=== PATIENT | female | born 1985 | race Caucasian/White ===

== ENCOUNTER → 2016-09-30 | Outpatient (CLI) | payer OTHER ==
[2016-09-30 14:39] LABS: CH 33.8; HCT 37.3 % (34.0-46.0); HDW 2.37; HGB 12.5 gm/dL (11.4-16.0); MCH 33.6 pg (25.0-35.0); MCHC 33.6 g/dL (31.0-37.0); Mean Platelet Volume 6.4; RBC 3.73 m/uL (3.80-5.40); RDW 12.9 % (11.5-15.5); WBC 11.2 k/uL (3.8-10.6)
--- NOTE | 2016-09-30 14:40 | US ---
EXAMINATION TYPE: US OB <= 14 wk fetus DATE OF EXAM: 09/30/2016 2:12 PM COMPARISON: Prior pelvic ultrasound May 20, 2013 CLINICAL HISTORY: confirm dates, positive beta-hCG test. EXAM PERFORMED: TA pelvic ultrasound. EXAM MEASUREMENTS: GESTATIONAL AGE / DATING Physician Established: not confirmed Dates by LMP: (10 weeks/6 days) EDC: 04/22/17 Dates by First Scan: no prior Dates by Current Scan : (10 weeks/2 days) EDC: 04/26/2017 MATERNAL ANATOMY Uterus: 10.3 x 7.7 x 6.7 cm Right Ovary: 2.8 x 1.7 x 3.0 cm Left Ovary: 2.2 x 2.7 x 2.0 cm GESTATION / SURVEY CRL: 2.8 cm (9 weeks/4 days) MSD: 4.9 cm (11 weeks/0 days) Yolk Sac (normal less than 6mm): 4mm Heart Rate: 160 bpm Rhythm: normal IUP: viable Date of LMP: 07/16/2016 TECHNOLOGIST IMPRESSION: viable IUP, wnl Single live intrauterine gestation is seen as gestational sac, yolk sac, and pole are identifie d. heart tones are regular and measure 160 bpm. No free fluid is seen in pelvic cul-de-sac. Both ovaries are identified. No suspicious solid or cystic extraovarian adnexal masses seen. IMPRESSION: Single live intrauterine gestation is seen, mean crown-rump length is 2.8 cm corresponding to 9 week 4 day old fetus.
[2016-09-30 15:03] LABS: Glucose 80 mg/dL (74-99); Non-African American GFR(MDRD) >60 (>60 ml/min/1.73 sqM)
[2016-09-30 15:30] LABS: Hepatitis B Surface Ag Index 0.04
[2016-10-02 10:12] LABS: HIV-1/HIV-2 Ab Screen NONREAC (NON REAC)
== END | disposition home or self-care (01) ==
LOC: RADUSWWP 13:43
PROVIDERS: ATTEND Obstetrics & Gynecology
DX: Z36 Encounter for antenatal screening of mother (principal); Z34.81 Encounter for supervision of other normal pregnancy, first trimester; Z3A.09 9 weeks gestation of pregnancy
CPT/HCPCS: 36415; 76801; 82565; 82947; 85027; 86762; 86780; 86850; 86900; 86901; 87340; 87389

== ENCOUNTER 2016-10-29 14:07 | Observation (INO) | payer OTHER ==
[2016-10-29] MEDS ORDERED: SODIUM CHLORIDE 0.9% 1,000 ML IV STA ×2 (15:03)
[2016-10-29 15:24] LABS: ALT 29 U/L (9-52); AST 17 U/L (14-36); Alkaline Phosphatase 46 U/L (38-126); Anion Gap 9 mmol/L; Blood Urea Nitrogen 11 mg/dL (7-17); Calcium 9.7 mg/dL (8.4-10.2); Carbon Dioxide 25 mmol/L (22-30); Chloride 102 mmol/L (98-107); Glucose 84 mg/dL (74-99); Non-African American GFR(MDRD) >60 (>60 ml/min/1.73 sqM); Potassium 3.7 mmol/L (3.5-5.1); Sodium 136 mmol/L (137-145); Total Bilirubin 0.4 mg/dL (0.2-1.3); Total Protein 6.6 g/dL (6.3-8.2)
--- NOTE | 2016-10-29 15:24 | ED ---
General Adult HPI - General Chief complaint: Dizziness Stated complaint: dizzy/abdominal cramps-15 wks preg Time Seen by Provider: 10/29/16 14:56 Source: patient Mode of arrival: wheelchair Limitations: no limitations - History of Present Illness Initial comments: This 31-year-old white female presents with a complaint of some dizziness which she describes more as a presyncopal sensation. This occurred at approximate 7 AM when she was making her children's lunches. She was standing at that time. His been persistent since that time. She is approximately 15 weeks at this time and denies any complications thus far with her . She does relate that she has had a persistent chest heaviness throughout her . She also developed some shortness of breath this past evening. She denies any leg pain or swelling. She denies any history of DVT or PE. She has had some mild inferior abdominal cramping. She denies any vaginal bleeding. His been no nausea or vomiting. She's been eating well and voiding well. She denies any fevers or recent infections. No other complaints or modifying factors. - Related Data Home Medications Medication Instructions Recorded Confirmed #79/Iron Asp Gly/FA#1 1 tab PO DAILY 10/29/16 10/29/16 [Prenate Elite Tablet] Allergies Allergy/AdvReac Type Severity Reaction Status Date / Time No Known Allergies Allergy Verified 10/29/16 14:45 Review of Systems ROS Statement: Those systems with pertinent positive or pertinent negative responses have been documented in the HPI. ROS Other: All systems not noted in ROS Statement are negative. Past Medical History Past Medical History: No Reported History History of Any Multi-Drug Resistant Organisms: None Reported Additional Past Surgical History / Comment(s): Eye surgery Past Psychological History: No Psychological Hx Reported Smoking Status: Never smoker Past Alcohol Use History: None Reported Past Drug Use History: None Reported General Exam - General Exam Comments Initial Comments: GENERAL: The patient is well nourished and well hydrated. VITAL SIGNS: Heart rate, blood pressure, respiratory rate reviewed as recorded in nurse's notes. EYES: Pupils are round and reactive. Extraocular movements are intact. No conjunctival / lid redness or swelling. ENT: No external evidence of injury, swelling, or ecchymosis. Airway is patent. Throat is clear. NECK: Nontender. No swelling or evidence of injury. No subcutaneous emphysema. Trachea is midline. No thyroid mass. HEART: Regular rate and rhythm. Good peripheral pulses. LUNGS/CHEST: Breath sounds clear and equal bilaterally. No rales, rhonchi, or wheezes. No ecchymosis, subcutaneous emphysema, or tenderness. ABDOMEN: Abdomen soft without tenderness. No palpable masses or organomegaly. No peritoneal signs. No abdominal wall swelling or ecchymosis. EXTREMITIES: No extremity tenderness. Normal muscle tone and function. No thoracolumbar tenderness. No extremity swelling. NEUROLOGIC: Sensation is grossly intact. Cranial nerve exam reveals face is symmetrical, tongue is midline, speech is clear. SKIN: No abrasions or ecchymosis is noted. No induration or masses noted. PSYCHIATRIC: Alert and oriented. Appropriate behavior and judgment. Limitations: no limitations Course Vital Signs 10/29/16 10/29/16 10/29/16 14:18 14:55 15:23 Temperature 99.0 F Pulse Rate 90 93 Pulse Rate [ 82 Sitting] Pulse Rate [ 103 H Standing] Pulse Rate [ 88 Supine] Respiratory 18 16 Rate Blood Pressure 127/62 Blood Pressure 122/62 [Right Arm Sitting] Blood Pressure 109/64 [Right Arm Standing] Blood Pressure 118/58 [Right Arm Supine] O2 Sat by Pulse 99 100 Oximetry 10/29/16 16:50 Temperature Pulse Rate 84 Pulse Rate [ Sitting] Pulse Rate [ Standing] Pulse Rate [ Supine] Respiratory 18 Rate Blood Pressure 104/57 Blood Pressure [Right Arm Sitting] Blood Pressure [Right Arm Standing] Blood Pressure [Right Arm Supine] O2 Sat by Pulse 100 Oximetry Medical Decision Making - Medical Decision Making The patient was seen and examined. All diagnostics were reviewed. IV is started and she is hydrated. The patient's EKG shows a normal sinus rhythm at a rate of 88. There is no acute ST-T wave changes identified. The CO interval is 152, QRS duration is 90, and the QTc interval is 450. The patient laboratory came back all essentially within normal limits except for the d- dimer was elevated at 0.79. Urinalysis is pending. She had a ultrasound which shows heart tones at 152 and an intrauterine at 15 weeks with no abnormalities. She is feeling improved on recheck with fluids. Her orthostatic vital signs were negative. The exact cause of her symptoms is not definitively determined. The possibility of a pulmonary embolism certainly is contemplated especially because of her symptomatology of presyncope, chest pain , and shortness of breath with an elevated d-dimer during . The case is discussed with Dr. Jacobo from [facility] for Dr. Adams and he requested the patient be admitted to the hospital overnight for observation and evaluation by Dr. Adams in the morning to determine if further testing is necessary. Case was discussed with Dr. Lopez from internal medicine and patient will be admitted to the hospital for further treatment. She would like OB in pulmonology to consult and for the patient to obtain an echocardiogram. - Lab Data Result diagrams: 10/29/16 15:00 10/29/16 15:00 Lab Results 10/29/16 10/29/16 10/29/16 Range/Units 15:00 15:00 15:00 WBC 8.5 (3.8-10.6) k/uL RBC 3.56 L (3.80-5.40) m/uL Hgb 11.8 (11.4-16.0) gm/dL Hct 34.8 (34.0-46.0) % MCV 97.8 (80.0-100.0) fL MCH 33.3 (25.0-35.0) pg MCHC 34.0 (31.0-37.0) g/dL RDW 13.0 (11.5-15.5) % Plt Count 239 (150-450) k/uL Neutrophils % 78 % Lymphocytes % 13 % Monocytes % 5 % Eosinophils % 2 % Basophils % 0 % Neutrophils # 6.6 (1.3-7.7) k/uL Lymphocytes # 1.1 (1.0-4.8) k/uL Monocytes # 0.4 (0-1.0) k/uL Eosinophils # 0.1 (0-0.7) k/uL Basophils # 0.0 (0-0.2) k/uL PT 10.1 (9.0-12.0) sec INR 1.0 (<1.1) APTT 23.4 (22.0-30.0) sec D-Dimer 0.79 H (<0.60) mg/L FEU Sodium 136 L (137-145) mmol/L Potassium 3.7 (3.5-5.1) mmol/L Chloride 102 (98-107) mmol/L Carbon Dioxide 25 (22-30) mmol/L Anion Gap 9 mmol/L BUN 11 (7-17) mg/dL Creatinine 0.45 L (0.52-1.04) mg/dL Est GFR (MDRD) Af Amer >60 (>60 ml/min/1.73 sqM) Est GFR (MDRD) Non-Af >60 (>60 ml/min/1.73 sqM) Glucose 84 (74-99) mg/dL Calcium 9.7 (8.4-10.2) mg/dL Total Bilirubin 0.4 (0.2-1.3) mg/dL AST 17 (14-36) U/L ALT 29 (9-52) U/L Alkaline Phosphatase 46 (38-126) U/L Troponin I (0.000-0.034) ng/mL Total Protein 6.6 (6.3-8.2) g/dL Albumin 3.8 (3.5-5.0) g/dL HCG, Quant 104096.0 mIU/mL 10/29/16 Range/Units 15:00 WBC (3.8-10.6) k/uL RBC (3.80-5.40) m/uL Hgb (11.4-16.0) gm/dL Hct (34.0-46.0) % MCV (80.0-100.0) fL MCH (25.0-35.0) pg MCHC (31.0-37.0) g/dL RDW (11.5-15.5) % Plt Count (150-450) k/uL Neutrophils % % Lymphocytes % % Monocytes % % Eosinophils % % Basophils % % Neutrophils # (1.3-7.7) k/uL Lymphocytes # (1.0-4.8) k/uL Monocytes # (0-1.0) k/uL Eosinophils # (0-0.7) k/uL Basophils # (0-0.2) k/uL PT (9.0-12.0) sec INR (<1.1) APTT (22.0-30.0) sec D-Dimer (<0.60) mg/L FEU Sodium (137-145) mmol/L Potassium (3.5-5.1) mmol/L Chloride (98-107) mmol/L Carbon Dioxide (22-30) mmol/L Anion Gap mmol/L BUN (7-17) mg/dL Creatinine (0.52-1.04) mg/dL Est GFR (MDRD) Af Amer (>60 ml/min/1.73 sqM) Est GFR (MDRD) Non-Af (>60 ml/min/1.73 sqM) Glucose (74-99) mg/dL Calcium (8.4-10.2) mg/dL Total Bilirubin (0.2-1.3) mg/dL AST (14-36) U/L ALT (9-52) U/L Alkaline Phosphatase (38-126) U/L Troponin I <0.012 (0.000-0.034) ng/mL Total Protein (6.3-8.2) g/dL Albumin (3.5-5.0) g/dL HCG, Quant mIU/mL Disposition Clinical Impression: Near syncope, Chest pain, Dyspnea, , Abdominal cramping, Elevated d- dimer Disposition: ADMITTED IP TO THIS HOSP Condition: Fair Referrals: Celestino Frey MD [Primary Care Provider] - 1-2 days Time of Disposition: 17:58 Decision Date: 10/29/16 Decision Time: 17:58
[2016-10-29 15:30] LABS: Basophils % (A) 0 %; CH 34.4; CHCM 35.4; Eosinophils # (A) 0.1 k/uL (0-0.7); Eosinophils % (A) 2 %; HCT 34.8 % (34.0-46.0); HDW 2.45; HGB 11.8 gm/dL (11.4-16.0); Luc # (Auto) 0.16; Luc % (Auto) 2; Lymphocytes # (A) 1.1 k/uL (1.0-4.8); Lymphocytes % (A) 13 %; MCH 33.3 pg (25.0-35.0); MCV 97.8 fL (80.0-100.0); Mean Platelet Volume 6.4; Monocytes # (A) 0.4 k/uL (0-1.0); Monocytes % (A) 5 %; Neutrophils # (A) 6.6 k/uL (1.3-7.7); Neutrophils % (A) 78 %; RBC 3.56 m/uL (3.80-5.40); WBC 8.5 k/uL (3.8-10.6); WBC (Perox) 8.74
--- NOTE | 2016-10-29 17:11 | US ---
EXAMINATION TYPE: US OB >= 14 wk fetus second trimester DATE OF EXAM: 10/29/2016 4:28 PM COMPARISON: US on PACS September 30, 2016 CLINICAL HISTORY: PainED unable to hear heart tones.Pt c/o dizziness, abd cramping, chest press ure, and SOB TECHNIQUE: TA GESTATIONAL AGE / DATING Physician Established: (15 weeks/0 days) EDC: 04/22/2017 Dates by LMP: (15 weeks/0 days) EDC: 04/22/2017 Dates by First Scan: (14 weeks/ 3 days) EDC: 04/26/2017 Dates by Current Scan: (15 weeks/0 days) EDC: 04/22/2017 SURVEY IUP: Single PLACENTA: Anterior PREVIA: Low Lying LISSETT: wnl CERVICAL LENGTH (transabdominal: norm > 3.0cm): 3.5 cm BIOMETRY PRESENTATION: variable LIE: variable BPD: 2.8 cm 15 weeks / 0 days HC: 9.7 cm 14 weeks / 3 days AC: 8.4 cm 14 weeks / 5 days FL: 1.4 cm 14 weeks / 2 days ESTIMATED WEIGHT IN GRAMS: 99.3 grams ESTIMATED WEIGHT IN LBS/OZS: 0 lbs. 4 oz. HC/AC: 1.14 FL/AC: 51.5 HEART RATE: 152 bpm RHYTHM: Normal TECHNOLOGIST IMPRESSION: Normal viable 15 week IUP. Ovaries wnl, with normal doppler flow. Single live intrauterine gestation is redemonstrated as gestational sac and pole are identified . No free fluid is seen in pelvic cul-de-sac. Both ovaries are identified by technologist. No suspicious adnexal masses are seen. IMPRESSION: Unremarkable study. Regular and normal heart rate is identified.
[2016-10-29 17:26] LABS: Partial Thromboplastin Time 23.4 sec (22.0-30.0); Prothrombin Time 10.1 sec (9.0-12.0)
[2016-10-29] MEDS ORDERED: ACETAMINOPHEN TAB 325 MG TAB PO PRN (18:04)
[2016-10-29] MEDS ORDERED: ENOXAPARIN 40 MG/0.4 ML SYRINGE SQ STA (18:10)
[2016-10-29 18:15] LABS: Amorphous Sediment,Urine Rare /hpf; Appearance,Urine Cloudy (Clear); Bacteria,Urine Few /hpf; Bilirubin,Urine Negative (Negative); Glucose,Urine (UA) Negative (Negative); Ketones,Urine Negative (Negative); Leukocyte Esterase,Urine Trace (Negative); Mucus,Urine Occasional /hpf; Nitrite,Urine Negative (Negative); PH, Urine 6.5 (5.0-8.0); Particle Count 6001; Protein,Urine Negative (Negative); RBC,Urine 1 /hpf (0-5); Specific Gravity,Urine 1.007 (1.001-1.035); Squamous Epithelial Cell,Urine 7 /hpf (0-4); UA Billing (MACRO vs. MICRO) MICRO; Urobilinogen,Urine <2.0 mg/dL (<2.0); WBC,Urine 12 /hpf (0-5)
[2016-10-29 18:58] VITALS: RESP 16
--- NOTE | 2016-10-29 20:34 | P.OBCN ---
History of Present Illness Consult date: 10/29/16 Requesting physician: Joyce Lopez Reason for consult: other (Syncope in .) Chief complaint: Dizziness and shortness of breath History of present illness: This patient is a pleasant 31-year-old 4 para 3 female estimated date of confinement 04/22/2017 estimated gestational age 14-5/7 weeks gestation which is confirmed by a 10 week ultrasound who presented to the emergency department with complaints of shortness of breath and dizziness. Patient's evaluation there was negative with the exception of a mild elevation of a d- dimer and hence she was admitted to the hospital per Dr. Lopez for further evaluation and observation. Patient denies any chest pain. Patient denies any vaginal bleeding or obstetrical symptomatology. Review of Systems Constitutional: Reports as per HPI Genitourinary: Reports Menstruation: Reports amenorrhea Past Medical History Past Medical History: Asthma Additional Past Medical History / Comment(s): skull fx as , asthma as child, uti, had chicken pox when younger,currently states she is 15 weeks . 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 is independant, no outside services. Smoking Status: Former smoker Past Alcohol Use History: None Reported Additional Past Alcohol Use History / Comment(s): started smoking at age 16 has smoked off an onbut has quit during all her pregnancies(most recently quit 3 months ago). Past Drug Use History: None Reported - Past Family History Father Family Medical History: No Reported History Mother Family Medical History: Hyperlipidemia, Hypertension, Thyroid Disorder Additional Family Medical History / Comment(s): mild stroke Medications and Allergies Home Medications Medication Instructions Recorded Confirmed Type #79/Iron Asp Gly/FA#1 1 tab PO DAILY 10/29/16 10/29/16 History [Prenate Elite Tablet] Allergies Allergy/AdvReac Type Severity Reaction Status Date / Time No Known Allergies Allergy Verified 10/29/16 14:45 Exam - Vital Signs Vital signs: Vital Signs Temp Pulse Pulse Pulse Resp BP BP 10/29/16 20:00 88 16 10/29/16 18:56 98.7 F 87 16 114/55 02/08/17 18:30 98.2 F 89 18 117/59 Pulse Ox 10/29/16 20:00 10/29/16 18:56 100 10/29/16 18:30 99 Intake and Output 10/29/16 10/29/16 10/29/16 06:59 14:59 22:59 Other: Voiding Method Toilet Weight 5 kg Patient Weight 10/30/16 06:59 Weight 5 kg Results Result Diagrams: 10/29/16 15:00 10/29/16 15:00 Assessment and Plan (1) Second trimester Narrative/Plan: This is a pleasant 31-year-old 4 para 3 female estimated gestational age 14-5/7 weeks gestation admitted to the emergency department for episodes of dizziness and mild shortness of breath. Evaluation there showed a mild d-dimer elevation. In this is most often a normal laboratory elevation. This patient has no clinical symptomatology consistent with a pulmonary embolism or other respiratory or pulmonary issues. Her dizziness and shortness of breath most likely are physiologic secondary to normal changes. There is no evidence of cardiopulmonary compromise. I do not recommend more invasive or radiologic testing unless the patient's clinical condition were to change. Patient may follow up with me as scheduled in the office and is clear for discharge from an obstetrical standpoint. Thank you very much for this consultation. Status: Acute
[2016-10-29 22:02] LABS: Creatine Kinase 25 U/L (30-135)
[2016-10-29 22:14] LABS: Creatine Kinase MB <0.2 ng/mL (0.0-2.4); Troponin I <0.012 ng/mL (0.000-0.034)
[2016-10-30 01:00] LABS: Glucose,Whole Blood 92 mg/dL (75-99)
[2016-10-30 06:42] LABS: Creatine Kinase 25 U/L (30-135)
[2016-10-30 06:55] LABS: Creatine Kinase MB <0.2 ng/mL (0.0-2.4); Troponin I <0.012 ng/mL (0.000-0.034)
[2016-10-30 08:20] VITALS: BP 104/53; PULSE 83; TEMP 98.8
[2016-10-30] MEDS ORDERED: ENOXAPARIN 40 MG/0.4 ML SYRINGE SQ SCH (09:00)
[2016-10-30] MEDS ORDERED: PRENATAL VIT-IRON-FOLIC ACID 1 EACH CAP PO SCH (09:00)
--- NOTE | 2016-10-30 11:40 | P.CNPUL ---
History of Present Illness Consult date: 10/30/16 Requesting physician: Joyce Lopez Reason for consult: dyspnea Chief complaint: Dizziness shortness of breath and near syncope History of present illness: This is a 31-year-old female, 15 weeks , patient presented to the ER yesterday with mostly symptoms of dizziness, lightheadedness, and presyncopal sensation. Patient was also complaining of chest heaviness which has been going on all along throughout her . Shortness of breath the night before she was admitted, no fever no chills no cough no wheezing no nausea no vomiting no abdominal pain no headache or blurred vision. Apparently the patient was noted to be orthostatic on admission, admitted, hydrated, she feels better today, but she still feels lightheaded and almost about to pass out if she sense up. She denies any shortness of breath at rest, she does have some shortness of breath when she stands up. Reviewing my evaluation, I recommended a chest x-ray patient declined, I also suggested a CT angiogram of the chest, patient declined. My index of suspicion for pulmonary embolism is rather low but definitely should be considered in the differential. Overall the patient feels a bit better today compared to how she felt yesterday upon admission. She felt much better after hydration. And she is still receiving IV fluids. Review of Systems 12 point review of systems were reviewed, please refer to pertinent positives and negatives in HPI Past Medical History Past Medical History: Asthma Additional Past Medical History / Comment(s): skull fx as , asthma as child, uti, had chicken pox when younger,currently states she is 15 weeks . 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 is independant, no outside services. Smoking Status: Former smoker Past Alcohol Use History: None Reported Additional Past Alcohol Use History / Comment(s): started smoking at age 16 has smoked off an onbut has quit during all her pregnancies(most recently quit 3 months ago). Past Drug Use History: None Reported - Past Family History Father Family Medical History: No Reported History Mother Family Medical History: Hyperlipidemia, Hypertension, Thyroid Disorder Additional Family Medical History / Comment(s): mild stroke Medications and Allergies Home Medications Medication Instructions Recorded Confirmed Type #79/Iron Asp Gly/FA#1 1 tab PO DAILY 10/29/16 10/29/16 History [Prenate Elite Tablet] Allergies Allergy/AdvReac Type Severity Reaction Status Date / Time No Known Allergies Allergy Verified 10/29/16 14:45 Physical Exam Vitals: Vital Signs Temp Pulse Pulse Pulse Pulse Pulse Resp 10/30/16 08:33 10/30/16 08:00 98.8 F 83 16 10/30/16 04:00 97.8 F 80 16 10/30/16 00:00 98.1 F 88 100 80 16 10/29/16 23:53 88 16 10/29/16 20:00 88 16 10/29/16 18:56 98.7 F 87 16 10/29/16 18:30 98.2 F 89 18 BP BP BP BP Pulse Ox 10/30/16 08:33 99 10/30/16 08:00 104/53 99 10/30/16 04:00 100/53 99 10/30/16 00:00 112/57 74/35 109/51 100 10/29/16 23:53 10/29/16 20:00 10/29/16 18:56 114/55 100 10/29/16 18:30 117/59 99 Intake and Output 10/29/16 10/30/16 10/30/16 22:59 06:59 14:59 Intake Total 775 Balance 775 Intake: IV 525 Sodium Chloride 0.9% 1, 525 000 ml @ 75 mls/hr IV . [id number] STA Rx#:[id number] Oral 250 Other: Voiding Method Toilet Toilet Toilet # Voids 3 1 Weight 5 kg 56.3 kg Patient Weight 10/31/16 06:59 Weight 56.3 kg Physical Exam: Revealed a 31-year-old female in no distress HEENT:[Neck is supple.] [No neck masses.] [No thyromegaly.] [No JVD.] Chest: [Clear throughout, no crackles, no rhonchi, no wheezes.] Cardiac Exam: [Normal S1 and S2, no S3 gallop, no murmur.] Abdomen: [Soft, nontender, no megaly, no rebound, no guarding, normal bowel sounds.] Extremities: [No clubbing, no edema, no cyanosis.] Neurological Exam: [No focal neurologic deficit.] Results - Laboratory Findings CBC and BMP: 10/29/16 15:00 10/29/16 15:00 PT/INR, D-dimer PT 10.1 sec (9.0-12.0) 10/29/16 15:00 INR 1.0 (<1.1) 10/29/16 15:00 D-Dimer 0.79 mg/L FEU (<0.60) H 10/29/16 15:00 Abnormal lab findings: Abnormal Labs 10/29/16 10/30/16 21:20 05:15 Total Creatine Kinase 25 L 25 L - Diagnostic Findings Additional studies: No radiological studies were done patient declined having a chest x-ray with a shield she also declined having a CT angiogram. Assessment and Plan Plan: Impression: 1 Near syncopal episodes and dyspnea secondary to and dehydration with orthostatic hypotension documented on the chart. 2 history of asthma, but clearly not active at this point and her pulmonary findings are normal. Recommendation: Agree with the present treatment plan, however ideally speaking the patient should have a CT angiogram of the chest to rule out the remote possibility of pulmonary embolism. Discussed that option with the patient, and she clearly declined having any radiological studies. Patient will likely be discharged home today, and follow-up on outpatient basis. Time with Patient: Less than 30
--- NOTE | 2016-10-30 11:57 | P.HPIM ---
History of Present Illness H&P Date: 10/30/16 Chief Complaint: Lightheadedness and shortness of breath HISTORY AND PHYSICAL AND DISCHARGE SUMMARY: This is a 31-year-old female. Her primary care physician is Dr. Celestino Frey. She is currently 15 weeks . She has a past medical history of asthma as a child. She states she has had a little shortness of breath ever since she found out that she was . Dizziness started yesterday morning only when she goes to stand up. She denies any recent nausea , vomiting, diarrhea. She denies any coffee intake. She denies any lower extremity edema. She denies any cough or wheezing. She states the shortness of breath is worse in the middle of the night and is worse when she lays on her back but better if she lays on her side either side. She does not follow with the pulmonary doctor. She came into [facility] emergency center for evaluation. EKG showed no acute ST-T wave changes. D-dimer was mildly elevated at 0.79. Troponin was negative on 3 draws. Urinalysis showed leukoesterase trace, WBC 12 , squamous cell 7, bacteria few. ultrasound was unremarkable. Regular and normal heart rate was identified. Patient was placed on the observation unit. She has been seen in consultation by Dr. Umanzor with recommendations for no further testing and follow-up with him in the office. Patient has been seen in consultation by Dr. Dawn was recommended CAT scan to rule out pulmonary embolism with the patient has refused. Patient is agreeable for discharge home today in stable condition. Pulmonary embolism is thought to be very low probability. Orthostatics have been positive. Review of Systems All systems: negative Constitutional: Denies chills, Denies fever Eyes: denies blurred vision, denies pain Ears, nose, mouth and throat: Denies headache, Denies sore throat Cardiovascular: Reports lightheadedness, Reports shortness of breath, Denies chest pain, Denies syncope Respiratory: Denies cough Gastrointestinal: Denies abdominal pain, Denies diarrhea, Denies nausea, Denies vomiting Genitourinary: Denies dysuria, Denies hematuria Musculoskeletal: Denies myalgias Integumentary: Denies pruritus, Denies rash Neurological: Denies numbness, Denies weakness Psychiatric: Denies anxiety, Denies depression Endocrine: Denies fatigue, Denies weight change Past Medical History Past Medical History: Asthma Additional Past Medical History / Comment(s): skull fx as , asthma as child, uti, chicken pox when younger, currently states she is 15 weeks . 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 is independant, no outside services. Smoking Status: Former smoker Past Alcohol Use History: None Reported Additional Past Alcohol Use History / Comment(s): started smoking at age 16 has smoked off an onbut has quit during all her pregnancies(most recently quit 3 months ago). She denies any medical marijuana, marijuana, street drug use. She denies any alcohol use. Past Drug Use History: None Reported - Past Family History Father Family Medical History: No Reported History Additional Family Medical History / Comment(s): Patient does not know any history of her father. Mother Family Medical History: Hyperlipidemia, Hypertension, Thyroid Disorder Additional Family Medical History / Comment(s): Mother is alive at age 55 with history of asthma, hypothyroidism, TIA, hypertension, hyperlipidemia. Brother(s) Additional Family Medical History / Comment(s): Patient has 2 brothers with no major medical problems. Sister(s) Additional Family Medical History / Comment(s): Patient has 3 half sisters with no major medical problems. Medications and Allergies Home Medications Medication Instructions Recorded Confirmed Type #79/Iron Asp Gly/FA#1 1 tab PO DAILY 10/29/16 10/29/16 History [Prenate Elite Tablet] Allergies Allergy/AdvReac Type Severity Reaction Status Date / Time No Known Allergies Allergy Verified 10/29/16 14:45 Physical Exam Vitals: Vital Signs Temp Pulse Pulse Pulse Pulse Pulse Resp 10/30/16 08:33 10/30/16 08:00 98.8 F 83 16 10/30/16 04:00 97.8 F 80 16 10/30/16 00:00 98.1 F 88 100 80 16 10/29/16 23:53 88 16 10/29/16 20:00 88 10/29/16 18:56 98.7 F 87 16 10/29/16 18:30 98.2 F 89 18 BP BP BP BP Pulse Ox 10/30/16 08:33 99 10/30/16 08:00 104/53 99 10/30/16 04:00 100/53 99 10/30/16 00:00 112/57 74/35 109/51 100 10/29/16 23:53 10/29/16 20:00 10/29/16 18:56 114/55 100 10/29/16 18:30 117/59 99 Intake and Output 10/29/16 10/30/16 10/30/16 22:59 06:59 14:59 Intake Total 775 Balance 775 Intake: IV 525 Sodium Chloride 0.9% 1, 525 000 ml @ 75 mls/hr IV . [id number] STA Rx#:[id number] Oral 250 Other: Voiding Method Toilet Toilet # Voids 3 Weight 5 kg 56.3 kg Patient Weight 10/31/16 06:59 Weight 56.3 kg Gen: This is a 31-year-old female. She is sitting up in bed and appears to be in no acute respiratory distress. HEENT: Head is atraumatic, normocephalic. Pupils equal, round. Sclerae is anicteric. NECK: Supple. No JVD. No lymphadenopathy. No thyromegaly. LUNGS: Clear to auscultation. No wheezes or rhonchi. No intercostal retractions. HEART: Regular rate and rhythm. No murmur. ABDOMEN: Soft. Bowel sounds are present. No masses. No tenderness. EXTREMITIES: No pedal edema. No calf tenderness. NEUROLOGICAL: Patient is awake, alert and oriented x3. Cranial nerves 2 through 12 are grossly intact. Results CBC & Chem 7: 10/29/16 15:00 10/29/16 15:00 Labs: Abnormal Lab Results - Last 24 Hours (Table) 10/29/16 10/30/16 Range/Units 21:20 05:15 Total Creatine Kinase 25 L 25 L (30-135) U/L Thrombosis Risk Factor Assmnt - DVT/VTE Prophylaxis DVT/VTE Prophylaxis: Low risk, early ambulation encouraged - Choose All That Apply Any of the Below Risk Factors Present?: Yes Each Factor Represents 1 point: or Other Risk Factors: No Other congenital or acquired thrombophilia - If yes, enter type in comment: No Thrombosis Risk Factor Assessment Total Risk Factor Score: 1 Thrombosis Risk Factor Assessment Level: Low Risk Assessment and Plan Plan: 1. Lightheadedness secondary to vasovagal and . Patient encouraged increased fluids, moves slowly. 2. Shortness of breath since onset of most likely due to the itself. D-dimer was mildly elevated and patient has declined CAT scan to rule out pulmonary embolism. Patient is at low probability for pulmonary embolism. 3. . Patient has been evaluated by Dr. Umanzor with planned follow- up in the office. 4. History of asthma as a child, currently not active. Patient is observation status. Discharge plan: Return home Impression and plan of care have been directed as dictated by the signing physician. Apoorva Ortiz nurse practitioner acting as scribe for signing physician. Cc: Dr. Celestino Frey Time with Patient: Greater than 30
== END 2016-10-30 11:05 | disposition home or self-care (01) ==
LOC: EC 14:07 → 3OBS 18:08
PROVIDERS: ADMIT Family Medicine; ATTEND Family Medicine
DX: O26.892 Other specified pregnancy related conditions, second trimester (principal); O99.512 Diseases of the respiratory system complicating pregnancy, second trimester; I95.1 Orthostatic hypotension; R06.00 Dyspnea, unspecified; R06.02 Shortness of breath; O99.282 Endocrine, nutritional and metabolic diseases complicating pregnancy, second trimester; E86.0 Dehydration; R07.89 Other chest pain; R10.9 Unspecified abdominal pain; Z87.891 Personal history of nicotine dependence; Z3A.15 15 weeks gestation of pregnancy; Z79.899 Other long term (current) drug therapy
CPT/HCPCS: 99284; 96372; 96360; 96361 ×2; 36415; 94760; 85379; 80053; 82550 ×2; 82553 ×2; 84484 ×2; 85025; 85610; 85730; 81001; 84702; 76805; G0378 ×2; J1650; 93005

== ENCOUNTER → 2016-11-25 | Outpatient (CLI) | payer OTHER ==
--- NOTE | 2016-11-26 10:10 | US ---
EXAMINATION TYPE: US OB anatomy transabd DATE OF EXAM: 11/25/2016 4:54 PM COMPARISON: None CLINICAL HISTORY: O36.62X0 Large for Dates 2nd Trimester TECHNIQUE: OBTA GESTATIONAL AGE / DATING Physician Established: (18 weeks/6 days) EDC: 04/22/2017 Dates by LMP: (18 weeks/6 days) EDC: 04/22/2017 Dates by First Scan: (18 weeks/2 days) EDC: 04/26/2017 Dates by Current Scan: (18 weeks/4 days) EDC: 04/24/2017 SURVEY IUP: Single PLACENTA: Anterior PREVIA: Complete LISSETT: 19.4 cm Normal CERVICAL LENGTH (transabdominal: norm > 3.0cm): 4.3 Normal Values (used in Ultrasound ) BIOMETRY PRESENTATION: Variable BPD: 4.3 cm 18 weeks / 6 days HC: 15.4 cm 18 weeks / 3 days AC: 13.9 cm 19 weeks / 2 days FL: 2.7 cm 18 weeks / 2 days ESTIMATED WEIGHT IN GRAMS: 257 grams ESTIMATED WEIGHT IN LBS/OZS: 0 lbs. 9 oz. WEIGHT PERCENTAGE BASED ON ESTABLISHED DATES: 41% HC/AC: 1.1 Normal FL/AC: 19.5 Normal HEART RATE: 148 bpm RHYTHM: Normal ANATOMY SEEN (within normal limits): * Lateral Vent (< 1 cm) 0.6 cm * Cisterna Magna (< 1.1 cm) 0.4 cm * Nuchal Fold (< 0.6 cm) 0.1 cm * Cerebellum (varies with age) 1.8 cm Choroid Plexus (bilateral) Midline Falx Cavus Septi Pellucidi Four Chamber Heart Outflow tracts: LVOT/RVOT Stomach Situs Diaphragm Kidneys (bilateral) Bladder Cord Insert Three Vessel Cord Longitudinal Spine Transverse Spine Arms (bilateral) Legs (bilateral) ANATOMY NOT SEEN: position Nose / Lips TECHNOLOGIST IMPRESSION: Viable 18w4d fetus seen with possible placenta previa, wnl for growth IMPRESSION: 1. Single intrauterine gestation estimated at 18 weeks 4 days gestation. This would have a calculated EDC of 04/24/2017. Correlate this with her physician established EDC. 2. Cardiac activity measures 148 bpm. 3. Possible low lying placenta versus placenta previa. 4. Limited evaluation of the nose and lips due to positioning at the time of this examination.
== END | disposition home or self-care (01) ==
LOC: RADUSWWP 16:02
PROVIDERS: ATTEND Obstetrics & Gynecology
DX: O36.62X0 Maternal care for excessive fetal growth, second trimester, not applicable or unspecified (principal); Z3A.18 18 weeks gestation of pregnancy
CPT/HCPCS: 76811

== ENCOUNTER → 2017-01-16 | Outpatient (CLI) | payer OTHER ==
[2017-01-16 09:51] LABS: CH 35.3; CHCM 32.9; HCT 34.7 % (34.0-46.0); HDW 2.46; HGB 11.2 gm/dL (11.4-16.0); MCH 34.9 pg (25.0-35.0); MCHC 32.3 g/dL (31.0-37.0); MCV 107.9 fL (80.0-100.0); Macrocytosis Marked; Mean Platelet Volume 6.5; RBC 3.22 m/uL (3.80-5.40); RDW 14.4 % (11.5-15.5); WBC 8.5 k/uL (3.8-10.6)
== END | disposition home or self-care (01) ==
LOC: LABWHC1 08:30
PROVIDERS: ATTEND Obstetrics & Gynecology
DX: Z34.82 Encounter for supervision of other normal pregnancy, second trimester (principal); Z3A.00 Weeks of gestation of pregnancy not specified
CPT/HCPCS: 36415; 82950; 85027

== ENCOUNTER → 2017-01-21 | Outpatient (CLI) | payer OTHER ==
[2017-01-21 13:24] LABS: Glucose 3 Hour, Gest 101 mg/dL
== END | disposition home or self-care (01) ==
LOC: LABWHC1 08:31
PROVIDERS: ATTEND Obstetrics & Gynecology
DX: O99.810 Abnormal glucose complicating pregnancy (principal); Z3A.00 Weeks of gestation of pregnancy not specified
CPT/HCPCS: 36415; 82951; 82952

== ENCOUNTER 2017-04-15 05:52 | Inpatient (IN) | payer OTHER ==
[2017-04-15] MEDS ORDERED: OXYTOCIN 10 UNIT/ML 1 ML VIAL IM PRN (06:01)
[2017-04-15] MEDS ORDERED: LIDOCAINE 1% (PF) 10 MG/ML (30 ML SDV) SQ PRN (06:01)
[2017-04-15] MEDS ORDERED: LACTATED RINGERS 1,000 ML IV SCH (06:01)
[2017-04-15] MEDS ORDERED: OXYTOCIN 20 UNITS/1000 ML NS 1,000 ML IV SCH ×2 (06:01→13:30)
[2017-04-15] MEDS ORDERED: METHYLERGONOVINE 0.2 MG/ML 1 ML AMP IM PRN (06:01)
[2017-04-15] MEDS ORDERED: TERBUTALINE 1 MG/ML VIAL SQ PRN (06:01)
[2017-04-15] MEDS ORDERED: CARBOPROST TROMETHAMINE 250 MCG/ML 1 ML AMP IM PRN (06:01)
[2017-04-15 06:15] VITALS: BMI 34.9
[2017-04-15 06:22] LABS: Basophils % (A) 0 %; CH 36.7; CHCM 34.9; Eosinophils # (A) 0.1 k/uL (0-0.7); Eosinophils % (A) 2 %; HCT 34.6 % (34.0-46.0); HDW 3.06; HGB 12.1 gm/dL (11.4-16.0); Luc # (Auto) 0.17; Luc % (Auto) 2; Lymphocytes # (A) 1.1 k/uL (1.0-4.8); Lymphocytes % (A) 14 %; MCH 36.9 pg (25.0-35.0); MCHC 34.9 g/dL (31.0-37.0); MCV 105.9 fL (80.0-100.0); Macrocytosis Moderate; Mean Platelet Volume 7.4; Monocytes # (A) 0.5 k/uL (0-1.0); Monocytes % (A) 5 %; Neutrophils # (A) 6.4 k/uL (1.3-7.7); Neutrophils % (A) 77 %; RBC 3.27 m/uL (3.80-5.40); RDW 14.3 % (11.5-15.5); WBC 8.3 k/uL (3.8-10.6); WBC (Perox) 8.52
--- NOTE | 2017-04-15 06:48 | P.HPOB ---
History of Present Illness H&P Date: 04/15/17 Chief Complaint: Patient is presenting for requested induction of labor. This patient is a pleasant 31-year-old 4 para 3 female estimated date of confinement 04/22/2017 estimated gestational age 39 weeks who presents to labor and delivery requesting induction of labor. Patient's care has been uncomplicated with the exception of history of delivery at 35 weeks she's been on pelvic rest. Patient is uncomfortable and has requested induction of labor at this time. Review of Systems Constitutional: Denies chills, Denies fever Ears, nose, mouth and throat: Denies headache, Denies sore throat Cardiovascular: Denies chest pain, Denies shortness of breath Respiratory: Denies cough Gastrointestinal: Reports heartburn Genitourinary: Reports Menstruation: Reports amenorrhea Musculoskeletal: Denies myalgias Integumentary: Denies pruritus, Denies rash Neurological: Denies numbness, Denies weakness Psychiatric: Denies anxiety, Denies depression Endocrine: Denies fatigue, Denies weight change Past Medical History Past Medical History: Asthma Additional Past Medical History / Comment(s): skull fx as , asthma as child, uti, chicken pox when younger, currently states she is 15 weeks . 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 is independant, no outside services. Smoking Status: Former smoker Past Alcohol Use History: None Reported Additional Past Alcohol Use History / Comment(s): started smoking at age 16 has smoked off an onbut has quit during all her pregnancies(most recently quit 3 months ago). She denies any medical marijuana, marijuana, street drug use. She denies any alcohol use. Past Drug Use History: None Reported - Past Family History Father Family Medical History: No Reported History Additional Family Medical History / Comment(s): Patient does not know any history of her father. Mother Family Medical History: Hyperlipidemia, Hypertension, Thyroid Disorder Additional Family Medical History / Comment(s): Mother is alive at age 55 with history of asthma, hypothyroidism, TIA, hypertension, hyperlipidemia. Brother(s) Additional Family Medical History / Comment(s): Patient has 2 brothers with no major medical problems. Sister(s) Additional Family Medical History / Comment(s): Patient has 3 half sisters with no major medical problems. Medications and Allergies Home Medications Medication Instructions Recorded Confirmed Type 114/Iron A-G/Folate 1 1 tab PO DAILY 10/29/16 04/15/17 History [Prenate Elite Tablet] Allergies Allergy/AdvReac Type Severity Reaction Status Date / Time No Known Allergies Allergy Verified 04/15/17 06:00 Exam - Vital Signs Vital signs: Vital Signs Temp Pulse Resp BP 04/15/17 06:00 98.3 F 98 16 135/65 Intake and Output 04/14/17 04/14/17 04/15/17 14:59 22:59 06:59 Other: # Voids 1 Weight 83.915 kg Patient Weight 04/15/17 06:59 Weight 83.915 kg - OBG Physical Exam Abdomen: bowel sounds normal, no diffuse tenderness, no bruit present, no guarding noted, no hepatomegaly, no splenomegaly, no mass Vulva: both: normal Vagina: normal moisture, no discharge Cervix: no lesion (Cervix is 2 cm dilated 50% effaced -2), no discharge Uterus: enlarged (Fundal height is 38 cm in the office.) Results blood work shows she is A positive, rubella immune, RPR nonreactive, HIV is nonreactive, hepatitis B was negative, ultrasounds have been normal, Glucola was abnormal with a normal three-hour GTT, group B strep was negative. Result Diagrams: 04/15/17 06:05 Abnormal Lab Results - Last 24 Hours (Table) 04/15/17 Range/Units 06:05 RBC 3.27 L (3.80-5.40) m/uL MCV 105.9 H (80.0-100.0) fL MCH 36.9 H (25.0-35.0) pg Assessment and Plan (1) Third trimester Narrative/Plan: This is a pleasant 31-year-old 4 para 3 female 39 weeks gestation who presents to labor and delivery for requested induction of labor. Plan is induction of labor and anticipate vaginal delivery. Status: Acute (2) Elective induction of labor planned Status: Acute
[2017-04-15] MEDS ORDERED: CITRIC ACID-SODIUM CITRATE 15 ML CUP PO ONE (12:26)
[2017-04-15] MEDS ORDERED: LACTATED RINGERS 1,000 ML IV ONE (12:26)
[2017-04-15] MEDS ORDERED: ceFAZolin 2 GM in SODIUM CHLORIDE 0.9% 100 ML IVPB ONE (12:26)
[2017-04-15] MEDS: LACTATED RINGERS 1,000 ML IV SCH ×2 (12:35→20:01)
[2017-04-15] MEDS ORDERED: SODIUM CHLORIDE 0.9% 100 ML BAG ONE (12:41)
[2017-04-15] MEDS ORDERED: NALBUPHINE 10 MG/ML AMPUL ONE (12:41)
[2017-04-15] MEDS ORDERED: KETOROLAC 30 MG/ML 1 ML VIAL ONE (12:41)
[2017-04-15] MEDS ORDERED: BUPIVACAINE (PF) 0.25% 30 ML VIAL ONE (12:41)
[2017-04-15] MEDS ORDERED: ONDANSETRON 4 MG/2 ML VIAL ONE (12:41)
[2017-04-15] MEDS ORDERED: OXYTOCIN 10 UNIT/ML 1 ML VIAL ONE (12:41)
[2017-04-15] MEDS ORDERED: fentaNYL (PF) 50 MCG/ML 5 ML AMP ONE (12:41)
[2017-04-15] MEDS ORDERED: NALOXONE 0.4 MG/ML 1 ML VIAL IV PRN ×3 (13:27→17:51)
[2017-04-15] MEDS ORDERED: ONDANSETRON 4 MG/2 ML VIAL IVP PRN ×2 (13:27→15:18)
[2017-04-15] MEDS ORDERED: ZOLPIDEM 5 MG TAB PO PRN (13:27)
[2017-04-15] MEDS ORDERED: diphenhydrAMINE 50 MG/ML 1 ML VIAL IVP PRN (13:27)
[2017-04-15] MEDS ORDERED: METOCLOPRAMIDE 5 MG/ML 2 ML VIAL IVP PRN (13:27)
[2017-04-15] MEDS ORDERED: ACETAMINOPHEN TAB 325 MG TAB PO PRN (13:27)
[2017-04-15] MEDS ORDERED: diphenhydrAMINE 25 MG CAP PO PRN (13:27)
[2017-04-15] MEDS ORDERED: KETOROLAC 30 MG/ML 1 ML VIAL IVP PRN (15:18)
[2017-04-15] MEDS ORDERED: MORPHINE SULFATE 4 MG/ML SYRINGE IVP PRN (15:18)
--- NOTE | 2017-04-15 18:08 | P.OP ---
Date of Procedure: 04/15/17 Preoperative Diagnosis: #1: 39-0/7 week . #2: malpresentation. Postoperative Diagnosis: Same Procedure(s) Performed: Primary low transverse section Implants: Anesthesia: spinal Surgeon: Willie Adams [employer] Cutter #1: Rafat Chin Estimated Blood Loss (ml): 1,000 Pathology: other (Placenta) Condition: stable Disposition: floor Indications for Procedure: Please see dictated H&P for intimate details of this patient's admission. In brief summary this is a pleasant 31-year-old 4 para 3 female 39-0/7 weeks gestation who was admitted this morning for requested induction of labor. On admission patient was 2 cm dilated and artificial rupture membranes for clear fluid. Patient's labor was induced with Pitocin per protocol. Later in the morning patient on exam was noted to have the head not presenting on the cervix. Ultrasound shows the to be oblique and very asynclitic. Repeat pelvic exam shows the head not being engaged or against cervix. At this time I recommend proceeding with section for delivery. Patient does understand this surgery and risks including risks of infection, bleeding, possible injury to bowel, bladder, vessels, and other organs. She also understands the risk of DVT pulmonary embolism. All the patient's questions are answered written consent is obtained. Operative Findings: This patient has a Causey catheter placed to straight drain. She is subsequently taken to the operating room where she sat up and spinal anesthetic is administered without incident. With adequate level of anesthesia she has abdominal prep and drape. Scalpels then taken and a Pfannenstiel skin incision is then made. A second scalpel is taken down to the fascia. Fascial incision extended bilaterally using the Daniels scissors. Fascia is then dissected sharply off the rectus muscles. The rectus muscles are and the peritoneum identified and entered sharply. Peritoneal incision extended superior and inferior without difficulty. Bladder blade is placed at this time. Note the uterus is very rotated to the left and therefore we will re-position the uterus to better visualize the lower uterine segment. There is a lot of vascularity in this area and for this reason I go above the bladder reflection was scalpel. A low transverse uterine incision is then made. The placenta is noted to be anterior and using a hemostat I gently go through the placenta extend this incision bluntly deliver the incision through this incision. The head is scattered through the incision with fundal pressure delivered 's head and rest of the infant's body. There is a nuchal cord which is loose and reduced. Mouth and nares are bulb suctioned. The umbilical cord is doubly clamped and cut appears to be trivascular. The placenta is manually extracted intact. Uterus at this time is externalized. The uterine incision is then demarcated with Kapoor clamps. Using a 0 Vicryl suture I reapproximate the uterine incision in a running locked fashion. 2 layers is used. There is another area on the right side which is bleeding and using multiple interrupted sutures of 0 Vicryl hemostasis is assured. Inspection of the rest of the uterus tubes and ovaries appears normal. Excess fluid is removed from the abdomen and pelvis. The incision is inspected once again appears to be hemostatic. The parietal peritoneum was then identified and closed using 0 Vicryl running fashion. The rectus muscle reapproximation using 0 Vicryl interrupted fashion. The fascia is then closed using 0 PDS. Fascial incision is intact and hemostatic. Subcutaneous tissues and closed using a 3-0 Vicryl. Skin is and closed using mare. Sterile dressing is then applied. All counts are correct 3. There are no complications. Patient is taken to her birthing suite in satisfactory condition. Description of Procedure:
[2017-04-15] MEDS: HYDROmorphone PCA 5 MG/25 ML SYRINGE IV PRN ×3 (18:20→18:26)
[2017-04-15] MEDS: SENNOSIDES-DOCUSATE SODIUM 1 EACH TAB PO SCH (20:01)
[2017-04-15] MEDS: ceFAZolin 2 GM in SODIUM CHLORIDE 0.9% 100 ML IVPB SCH (20:49)
[2017-04-16] MEDS ORDERED: HYDROcodone/APAP 5-325MG 1 EACH TAB PO PRN (06:30)
--- NOTE | 2017-04-16 06:39 | P.PNOBGPC ---
Subjective - Subjective Patient reports: Reports appetite normal, Reports voiding normally, Reports pain well controlled, Reports ambulating normally : doing well Objective - Vital Signs Latest vital signs: Vital Signs Temp Pulse Resp BP Pulse Ox 04/16/17 04:00 98.5 F 95 16 103/71 97 04/16/17 00:00 98.6 F 98 14 112/73 97 04/15/17 20:00 98.8 F 91 16 147/63 98 04/15/17 17:37 91 18 116/57 97 04/15/17 16:18 98 04/15/17 15:30 86 18 123/76 98 04/15/17 15:18 98 04/15/17 15:00 96 18 111/74 98 04/15/17 14:30 89 18 113/58 98 04/15/17 14:15 87 18 122/58 97 04/15/17 14:00 89 18 111/61 97 04/15/17 13:45 83 18 112/55 96 04/15/17 13:30 97.7 F 83 18 123/57 96 Intake and Output 04/15/17 04/15/17 04/16/17 14:59 22:59 06:59 Intake Total 2000 Output Total 2400 800 Balance -400 -800 Intake: IV 2000 Lactated Ringers 1,000 ml 2000 @ 125 mls/hr IV .Q8H [facility] Rx#:[id number] Output: Urine 400 500 Stool 300 Estimated Blood Loss 2000 Other: Voiding Method Indwelling Catheter Indwelling Catheter - Exam Lungs: bilateral: normal Chest: Normal S1, Normal S2 Extremities: Present: normal Abdomen: Present: normal appearance, soft. Absent: distention, tenderness Incision: Present: normal, dry, intact Uterus: Present: normal, firm Assessment and Plan (1) Third trimester Narrative/Plan: Post operative day #1. Patient is resting without new complaints. Vital signs are stable and she is afebrile. Uterus is firm nontender she's having normal lochia. Her incision is intact and dry. She does have some decreased bowel sounds but patient is tolerating liquid diet and I'm going to advance her to a regular diet as tolerated. CBC is pending at this time. Plan today is to discontinue her catheter, encourage her to ambulate, advance to regular diet, and check a CBC. Dr. Walters we will see this patient Thursday and Thursday in my absence. Current Visit: Yes Status: Acute Code(s): Z34.93 - ENCNTR FOR SUPRVSN OF NORMAL PREG, UNSP, THIRD TRIMESTER SNOMED Code(s): 74940449 (2) Elective induction of labor planned Current Visit: Yes Status: Acute Code(s): QSS7092 - SNOMED Code(s): 926338634
[2017-04-16] MEDS: KETOROLAC 30 MG/ML 1 ML VIAL IVP PRN ×3 (06:49→18:15)
[2017-04-16] MEDS: ceFAZolin 2 GM in SODIUM CHLORIDE 0.9% 100 ML IVPB SCH (07:06)
[2017-04-16 07:45] LABS: Basophils % (A) 0 %; CH 36.3; CHCM 34.5; Eosinophils # (A) 0.1 k/uL (0-0.7); Eosinophils % (A) 1 %; HCT 28.3 % (34.0-46.0); HDW 3.02; Luc # (Auto) 0.19; Luc % (Auto) 2; Lymphocytes # (A) 0.9 k/uL (1.0-4.8); Lymphocytes % (A) 8 %; MCH 36.1 pg (25.0-35.0); MCHC 34.1 g/dL (31.0-37.0); MCV 105.9 fL (80.0-100.0); Macrocytosis Moderate; Mean Platelet Volume 7.7; Monocytes # (A) 0.5 k/uL (0-1.0); Monocytes % (A) 5 %; Neutrophils # (A) 9.6 k/uL (1.3-7.7); Neutrophils % (A) 84 %; RBC 2.67 m/uL (3.80-5.40); RDW 14.2 % (11.5-15.5); WBC 11.3 k/uL (3.8-10.6); WBC (Perox) 11.28
[2017-04-16 07:49] LABS: HGB 9.6 gm/dL (11.4-16.0)
[2017-04-16] MEDS: SENNOSIDES-DOCUSATE SODIUM 1 EACH TAB PO SCH ×2 (08:11→19:44)
[2017-04-16] MEDS: HYDROcodone/APAP 5-325MG 1 EACH TAB PO PRN ×3 (08:30→21:40)
--- NOTE | 2017-04-16 09:16 | P.PN ---
Progress Note - Text Postoperative day 1 status post section under spinal anesthesia, and intrathecal morphine given for postoperative analgesia, patient doing well, there is no anesthesia related complications, further management as per her primary team
[2017-04-16] MEDS: SIMETHICONE 80 MG CHEWABLE PO PRN ×2 (15:25→19:44)
[2017-04-16] MEDS: LACTATED RINGERS 1,000 ML IV SCH (19:44)
[2017-04-17] MEDS: IBUPROFEN 600 MG TAB PO PRN ×2 (02:04→11:52)
[2017-04-17] MEDS: HYDROcodone/APAP 5-325MG 1 EACH TAB PO PRN ×2 (06:58→15:08)
--- NOTE | 2017-04-17 07:42 | P.PNOBGPC ---
Subjective - Subjective Principal diagnosis: S/P 1*LTCS POD #2 Interval history: Patient seen and examined. Denies N/V, F/C, CP, SOB, calf pain. Patient reports: Reports appetite normal, Reports voiding normally, Reports pain well controlled, Reports ambulating normally : doing well Objective - Vital Signs Latest vital signs: Vital Signs Temp Pulse Resp BP Pulse Ox 04/16/17 23:46 98.7 F 106 H 18 108/63 97 04/16/17 15:30 98.5 F 95 18 112/58 99 04/16/17 11:04 98.2 F 107 H 16 102/59 98 04/16/17 07:52 98.3 F 104 H 18 102/64 97 Intake and Output 04/16/17 04/17/17 04/17/17 22:59 06:59 14:59 Output Total 200 Balance -200 Output: Urine 200 Other: # Voids 1 - Exam Lungs: bilateral: normal Chest: Normal S1, Normal S2 Extremities: Present: normal Abdomen: Present: normal appearance, soft. Absent: distention, tenderness Incision: Present: normal, dry, intact Uterus: Present: normal, firm - Labs Labs: Abnormal Lab Results - Last 24 Hours (Table) 04/16/17 Range/Units 07:15 WBC 11.3 H (3.8-10.6) k/uL RBC 2.67 L (3.80-5.40) m/uL Hgb 9.6 L D (11.4-16.0) gm/dL Hct 28.3 L (34.0-46.0) % MCV 105.9 H (80.0-100.0) fL MCH 36.1 H (25.0-35.0) pg Neutrophils # 9.6 H (1.3-7.7) k/uL Lymphocytes # 0.9 L (1.0-4.8) k/uL Assessment and Plan (1) Status post primary low transverse section Narrative/Plan: 1. increase ambulation 2. continue pain control Current Visit: Yes Status: Acute Code(s): Z98.891 - HISTORY OF UTERINE SCAR FROM PREVIOUS SURGERY SNOMED Code(s): 152934678
[2017-04-17] MEDS: SENNOSIDES-DOCUSATE SODIUM 1 EACH TAB PO SCH (08:15)
[2017-04-17 11:47] VITALS: BP 110/70; PULSE 80; RESP 14; TEMP 98.5
--- NOTE | 2017-04-17 13:00 | P.DS ---
Providers Date of admission: 04/15/17 05:52 Expected date of discharge: 04/17/17 Attending physician: Willie Adams Primary care physician: Willie Adams - Discharge Diagnosis(es) (1) Status post primary low transverse section Current Visit: Yes Status: Acute Hospital Course: Patient presented for induction of labor. She underwent a primary low transverse . Her post operative course was uncomplicated. Her incision is C/D/I, no erythema or drainage. She is ambulating and voiding without difficulty, tolerating a regular diet. She will be discharged home POD #2 in stable condition to follow up with Dr Adams in 1 week. Plan - Discharge Summary New Discharge Prescriptions: New HYDROcodone/APAP 5-325MG [Wanda 5-325] 1 - 2 each PO Q4HR PRN #40 tab PRN Reason: Pain Ibuprofen [Motrin] 600 mg PO Q6HR PRN #40 tab PRN Reason: Mild Pain Or Fever >= 100.5 No Action 114/Iron A-G/Folate 1 [Prenate Elite Tablet] 1 tab PO DAILY Albuterol Sulfate [Proventil Hfa] 2 puff INHALATION Q6HR PRN #1 inhaler PRN Reason: Wheezing Discharge Medication List 114/Iron A-G/Folate 1 [Prenate Elite Tablet] 1 tab PO DAILY 10/29/16 [ History] Albuterol Sulfate [Proventil Hfa] 2 puff INHALATION Q6HR PRN #1 inhaler [Rx] HYDROcodone/APAP 5-325MG [Wanda 5-325] 1 - 2 each PO Q4HR PRN #40 tab 04/16/17 [ Rx] Ibuprofen [Motrin] 600 mg PO Q6HR PRN #40 tab 04/16/17 [Rx] Follow up Appointment(s)/Referral(s): Willie Adams MD [Primary Care Provider] - 1 Week Patient Instructions/Handouts: (DC) Activity/Diet/Wound Care/Special Instructions: No heavy lifting or strenuous activity for 6 weeks. Please call if any fever, chills, excessive vaginal bleeding, and/or abdominal pain. No intercourse or anything per vagina for 6 weeks. Discharge Disposition: HOME SELF-CARE
== END 2017-04-17 15:20 | disposition home or self-care (01) | DRG 766 ==
LOC: 4FBP 05:52
PROVIDERS: ADMIT Obstetrics & Gynecology; ATTEND Obstetrics & Gynecology
PROC: 3E033VJ Introduction of Other Hormone into Peripheral Vein, Percutaneous Approach (ICD-10-PCS; 2017-04-15)
PROC: 10D00Z1 Extraction of Products of Conception, Low, Open Approach (ICD-10-PCS; principal; 2017-04-15 13:00)
DX: O32.9XX0 Maternal care for malpresentation of fetus, unspecified, not applicable or unspecified (principal); J45.909 Unspecified asthma, uncomplicated; O99.52 Diseases of the respiratory system complicating childbirth; O69.81X0 Labor and delivery complicated by cord around neck, without compression, not applicable or unspecified; Z37.0 Single live birth; Z3A.39 39 weeks gestation of pregnancy; Z87.891 Personal history of nicotine dependence; Z82.5 Family history of asthma and other chronic lower respiratory diseases; Z82.49 Family history of ischemic heart disease and other diseases of the circulatory system
CPT/HCPCS: 85025; 86850; 86900; 86901; 88307

== ENCOUNTER → 2018-04-08 | Outpatient (CLI) | payer OTHER ==
[2018-04-08 16:00] LABS: HCT 36.6 % (34.0-46.0); HGB 12.5 gm/dL (11.4-16.0); MCH 33.3 pg (25.0-35.0); MCHC 34.3 g/dL (31.0-37.0); MCV 97.2 fL (80.0-100.0); Mean Platelet Volume 6.4; Platelet Count 258 k/uL (150-450); RBC 3.77 m/uL (3.80-5.40); RDW 12.9 % (11.5-15.5); WBC 8.2 k/uL (3.8-10.6)
[2018-04-08 16:16] LABS: Glucose 86 mg/dL (74-99)
[2018-04-09 01:08] LABS: HIV AB P24 Non-Reactive (Non-Reactive); HIV P24 AG Non-Reactive (Non-Reactive)
--- NOTE | 2018-04-09 07:47 | US ---
EXAMINATION TYPE: Transabdominal DATE OF EXAM: 12/22/17 COMPARISON: NONE CLINICAL HISTORY: Z36 Confirm dates. Confirm dates, 5, para 4.. Positive beta-hCG test. EXAM PERFORMED: Transabdominal (TA) EXAM MEASUREMENTS: GESTATIONAL AGE / DATING Physician Established: (8 weeks/6 days) EDC: 11/12/2018 Dates by LMP: (8 weeks/6 days) EDC: 11/12/2018 Dates by First Scan: This is 1st scan Dates by Current Scan for: (8 weeks/6 days) EDC: 11/12/2018 MATERNAL ANATOMY Uterus: 13.1 x 4.3 x 8.6cm, anteverted Right Ovary: 3.7 x 1.9 x 2.4cm Left Ovary: 3.0 x 1.3 x 2.2cm Post CDS / Adnexa: wnl Presence of free fluid: wnl Presence of corpus luteal cyst: right ovary: 1.6 x 1.3 x 1.6cm cystic area, possible corpus luteum Presence of subchorionic bleed: no GESTATION / SURVEY CRL: 2.2cm (8 weeks/6 days) Yolk Sac (normal less than 6mm): 3.9mm Heart Rate: 161 bpm Rhythm: Normal IUP: Viable IUP Date of LMP: 02/05/2018 Viable single IUP measuring 8 weeks 6 days with a heart rate of 161bpm and an estimated delivery date of 11/12/2018. Single live intrauterine gestation is confirmed as gestational sac, yolk sac, pole are identifi ed. No free fluid is seen in pelvic cul-de-sac. Both ovaries are identified. Within right ovary there is 1.6 cm thin-walled cyst likely reflecting co rpus luteal cyst. No suspicious extraovarian adnexal masses are noted. IMPRESSION: Single live intrauterine gestation is seen, mean crown-rump length is 2.2 cm corresponding to 8 week 6 day old fetus.
== END | disposition home or self-care (01) ==
LOC: RADUSWWP 14:56
PROVIDERS: ATTEND Obstetrics & Gynecology
DX: O26.811 Pregnancy related exhaustion and fatigue, first trimester (principal); Z3A.10 10 weeks gestation of pregnancy
CPT/HCPCS: 76801; 82565; 82947; 85027; 86762; 86780; 86850; 86900; 86901; 87340; 87390

== ENCOUNTER → 2018-08-02 | Outpatient (CLI) | payer OTHER ==
[2018-08-02 10:21] LABS: HCT 34.8 % (34.0-46.0); HGB 11.7 gm/dL (11.4-16.0); MCH 35.1 pg (25.0-35.0); MCHC 33.6 g/dL (31.0-37.0); MCV 104.4 fL (80.0-100.0); Macrocytosis Slight; Mean Platelet Volume 6.6; Platelet Count 221 k/uL (150-450); RBC 3.33 m/uL (3.80-5.40); RDW 13.3 % (11.5-15.5); WBC 10.2 k/uL (3.8-10.6)
== END ==
LOC: LABWHC1 08:42
PROVIDERS: ATTEND Obstetrics & Gynecology
DX: Z34.82 Encounter for supervision of other normal pregnancy, second trimester (principal); Z3A.00 Weeks of gestation of pregnancy not specified
CPT/HCPCS: 36415; 82950; 85027

== ENCOUNTER 2018-11-05 05:51 | Inpatient (IN) | payer OTHER ==
[2018-11-03 11:41] VITALS: BMI 34.0
--- NOTE | 2018-11-04 08:19 | P.HPOB ---
History of Present Illness H&P Date: 11/04/18 Chief Complaint: Requesting repeat section. This patient is a pleasant 33 yr old female EDC 11/12/2018 estimated gestational age 39wk who presents requesting a repeat C/S. Naomi has had an uncomplicated and initially wanted to , but changed her mind at 26wks and is requesting repeat C/S. She does not want a tubal ligation. She has had 3 previous vaginal deliveries, followed by a primary c/s for malpresentation. 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 Mother Family Medical History: Hyperlipidemia, Hypertension, Thyroid Disorder Additional Family Medical History / Comment(s): Mother is alive at age 55 with history of asthma, hypothyroidism, TIA, hypertension, hyperlipidemia. Brother(s) Additional Family Medical History / Comment(s): Patient has 2 brothers with no major medical problems. Sister(s) Additional Family Medical History / Comment(s): Patient has 3 half sisters with no major medical problems. Medications and Allergies Home Medications Medication Instructions Recorded Confirmed Type 114/Iron A-G/Folate 1 1 tab PO DAILY 10/29/16 11/03/18 History [Prenate Elite Tablet] Ferrous Sulfate [Iron (65 MG 325 mg PO DAILY 11/03/18 11/03/18 History Elemental)] Allergies Allergy/AdvReac Type Severity Reaction Status Date / Time No Known Allergies Allergy Verified 04/15/17 06:00 Exam - OBG Physical Exam Abdomen: bowel sounds normal, no diffuse tenderness, no bruit present, no guarding noted, no hepatomegaly, no splenomegaly, no mass Vulva: both: normal Vagina: normal moisture, no discharge Cervix: no lesion, no discharge Uterus: enlarged (Fundal height is 39 cm. ), normal contour Results blood work: A positive, Rubella Immune, RSR-NcpU-NBR negative, Glucola 142 with normal 3hr GTT, GBS negative. Ultrasounds have been normal. Assessment and Plan Assessment: This is a pleasant 33 yr female 39wks estimated gestational age with previous C/S who desires a repeat C/S. I have discussed this surgery and risks with Naomi including the risks: infection, bleeding, possible injury to bowel /bladder/vessels and/or other organs. Risks of DVT/PE. All of the patients questions were answered and a written consent obtained. (1) 39 weeks gestation of Status: Acute Code(s): Z3A.39 - 39 WEEKS GESTATION OF SNOMED Code( s): 58246629 (2) Previous delivery affecting Status: Acute Code(s): O34.219 - MATERNAL CARE FOR UNSP TYPE SCAR FROM PREVIOUS DEL SNOMED Code(s): 463823470
[2018-11-05] MEDS ORDERED: LACTATED RINGERS 1,000 ML IV SCH (06:14)
[2018-11-05] MEDS ORDERED: CITRIC ACID-SODIUM CITRATE 15 ML CUP PO ONE (06:14)
[2018-11-05] MEDS ORDERED: LACTATED RINGERS 1,000 ML IV ONE (06:14)
[2018-11-05 06:26] LABS: Basophils % (A) 0 %; Eosinophils # (A) 0.1 k/uL (0-0.7); Eosinophils % (A) 1 %; HCT 36.5 % (34.0-46.0); HGB 12.7 gm/dL (11.4-16.0); Lymphocytes # (A) 1.3 k/uL (1.0-4.8); Lymphocytes % (A) 13 %; MCH 35.9 pg (25.0-35.0); MCHC 34.8 g/dL (31.0-37.0); MCV 103.3 fL (80.0-100.0); Macrocytosis Slight; Mean Platelet Volume 6.4; Monocytes # (A) 0.5 k/uL (0-1.0); Monocytes % (A) 5 %; Neutrophils # (A) 7.6 k/uL (1.3-7.7); Neutrophils % (A) 78 %; Platelet Count 225 k/uL (150-450); RBC 3.53 m/uL (3.80-5.40); RDW 13.7 % (11.5-15.5); WBC 9.8 k/uL (3.8-10.6)
[2018-11-05] MEDS ORDERED: ceFAZolin IN SWFI 2 GM/20 ML SYRINGE IVP ONE (07:15)
[2018-11-05] MEDS ORDERED: NALBUPHINE 10 MG/ML (1 ML AMP) ONE (07:50)
[2018-11-05] MEDS ORDERED: KETOROLAC 30 MG/ML 1 ML VIAL ONE (07:50)
[2018-11-05] MEDS ORDERED: ONDANSETRON 4 MG/2 ML VIAL ONE (07:50)
[2018-11-05] MEDS ORDERED: ePHEDrine SULFATE/0.9% NACL/PF 50 MG/5 ML SYRINGE IV ONE (07:50)
[2018-11-05] MEDS ORDERED: MORPHINE SULFATE (PF) 0.3 MG/0.3 ML SYR ONE (07:50)
--- NOTE | 2018-11-05 08:32 | P.OP ---
Date of Procedure: 11/05/18 Preoperative Diagnosis: #1: 39 weeks intrauterine . #2: Previous section desires repeat. Postoperative Diagnosis: Same Procedure(s) Performed: Repeat low transverse section Anesthesia: spinal Surgeon: Willie Adams Client Finance Analyst #1: Waleska Caldwell Estimated Blood Loss (ml): 500 Pathology: none sent Condition: stable Disposition: floor Indications for Procedure: Please see dictated H&P for intimate details of this patient's admission. Brief summary this is a pleasant 33-year-old 5 para 4 female estimated gestational age 39 weeks who's had a previous section with her last as requested repeat section at this time. She denies discussed the surgery and risks including risks of bleeding, possible injury bowel, bladder, vessels, and/or other organs. All the patient's questions are answered and a written consent is obtained. Operative Findings: This is a vigorous viable male Apgars 9 and 9 delivery time is 0804 hrs. Infant had a nuchal cord 1. Description of Procedure: This patient has a Causey catheter placed to straight drain. She is subsequently taken to the operating room where she sat up and spinal anesthetic is administered without incident. With an adequate level of anesthesia she has abdominal prep and drape. Scalpels and taken the previous Pfannenstiel incision is excised. Second scalpels and taken down the fascia the fascia scored with a knife. Fascial incision extended bilaterally using the Daniels scissors. Fascia is dissected sharply off the rectus muscles. Rectus muscles are the peritoneum identified and entered sharply. Peritoneal incision extended superior and inferior without difficulty. Bladder blade is then placed. Bladder peritoneum was then taken off the lower uterine segment sharply. Scalpels taken low transverse uterine incision is then made. Using a hemostat I into the uterine cavity bluntly and there is loss of clear fluid. This incision is extended bluntly. The infant's head is delivered atraumatically with fundal pressure through the incision. Mouth and nares are bulb suctioned there is a loose nuchal cord which is reduced. We then have deliver the rest this infant's body. This is a vigorous viable male infant Apgars are 9 and 9 delivery time is 0804 hrs. After delivery of the infant the umbilical cord is then doubly clamped and cut appears to be trivascular. The placenta is then manually extracted intact. Uterine incision is then demarcated with Kapoor clamps and externalized. Incision is closed using 0 Vicryl running locked fashion in 2 layers. Inspection the uterus tubes and ovaries appear normal for term gestation. Excess fluid is removed from the abdomen and pelvis. Uterus placed back into the abdomen. Parietal peritoneum was then closed using 0 Vicryl running fashion. Rectus muscles reapproximated Vicryl interrupted fashion. Fascia is then closed using 0 PDS. Fascial incision is intact and hemostatic. Subcutaneous tissues and closed using a 3-0 Vicryl. Skin is and closed using mare. All counts correct 3. There are no complications. Infant and mother are taken to the birthing suite in satisfactory condition.
[2018-11-05] MEDS: OXYTOCIN 20 UNITS/1000 ML NS 1,000 ML IV SCH ×2 (09:00→19:56)
[2018-11-05] MEDS ORDERED: KETOROLAC 30 MG/ML 1 ML VIAL IVP PRN ×2 (09:13→09:46)
[2018-11-05] MEDS ORDERED: NALBUPHINE 10 MG/ML (1 ML AMP) IV PRN (09:13)
[2018-11-05] MEDS ORDERED: MORPHINE SULFATE 2 MG/ML SYRINGE IVP PRN (09:13)
[2018-11-05] MEDS ORDERED: ONDANSETRON 4 MG/2 ML VIAL IVP PRN ×2 (09:13→09:46)
[2018-11-05] MEDS ORDERED: NALOXONE 0.4 MG/ML 1 ML VIAL IV PRN ×2 (09:13→09:46)
[2018-11-05] MEDS ORDERED: diphenhydrAMINE 50 MG/ML 1 ML VIAL IVP PRN ×2 (09:13→09:46)
[2018-11-05] MEDS ORDERED: METOCLOPRAMIDE 5 MG/ML 2 ML VIAL IVP PRN (09:46)
[2018-11-05] MEDS ORDERED: LANOLIN CREAM 5 GM TUBE TOPICAL PRN (09:46)
[2018-11-05] MEDS ORDERED: ZOLPIDEM 5 MG TAB PO PRN (09:46)
[2018-11-05] MEDS ORDERED: diphenhydrAMINE 25 MG CAP PO PRN (09:46)
[2018-11-05] MEDS ORDERED: OXYTOCIN 20 UNITS/1000 ML NS 1,000 ML IV SCH (09:46)
[2018-11-05] MEDS ORDERED: ACETAMINOPHEN TAB 325 MG TAB PO PRN (09:46)
[2018-11-05] MEDS ORDERED: SIMETHICONE 80 MG CHEWABLE PO PRN (09:46)
[2018-11-05] MEDS: SENNOSIDES-DOCUSATE SODIUM 1 EACH TAB PO SCH ×2 (10:54→19:56)
[2018-11-05] MEDS: LACTATED RINGERS 1,000 ML IV SCH ×2 (21:00→21:01)
[2018-11-06] MEDS: IBUPROFEN 600 MG TAB PO PRN ×3 (01:59→17:49)
[2018-11-06] MEDS: OXYTOCIN 20 UNITS/1000 ML NS 1,000 ML IV SCH (02:00)
[2018-11-06 06:55] LABS: Basophils % (A) 0 %; Eosinophils # (A) 0.2 k/uL (0-0.7); Eosinophils % (A) 2 %; HCT 27.3 % (34.0-46.0); Lymphocytes % (A) 11 %; MCH 35.9 pg (25.0-35.0); MCHC 34.1 g/dL (31.0-37.0); MCV 105.4 fL (80.0-100.0); Macrocytosis Moderate; Mean Platelet Volume 6.6; Monocytes # (A) 0.5 k/uL (0-1.0); Monocytes % (A) 5 %; Neutrophils # (A) 7.8 k/uL (1.3-7.7); Neutrophils % (A) 81 %; Platelet Count 182 k/uL (150-450); RBC 2.59 m/uL (3.80-5.40); RDW 13.7 % (11.5-15.5); WBC 9.6 k/uL (3.8-10.6)
[2018-11-06 06:59] LABS: HGB 9.3 gm/dL (11.4-16.0)
[2018-11-06] MEDS: SENNOSIDES-DOCUSATE SODIUM 1 EACH TAB PO SCH ×2 (08:29→19:24)
--- NOTE | 2018-11-06 09:01 | P.PN ---
Progress Note - Text Progress Note Date: 11/06/18 33-year-old female status post section with Duramorph spinal. Patient doing well no motor sensory deficits. No pruritus, ambulating well and tolerating diet well. Overall patient is doing well
[2018-11-06] MEDS ORDERED: HYDROcodone/APAP 7.5-325MG 1 EACH TAB PO PRN (12:41)
--- NOTE | 2018-11-06 12:43 | P.PNOBGPC ---
Subjective - Subjective Principal diagnosis: Status post repeat section postoperative day #1 Interval history: Patient is doing okay. She is having some breakthrough pain and currently is only using ibuprofen. Lochia is decreasing. She is passing flatus but no bowel movement yet. Patient reports: Reports appetite normal, Reports voiding normally, Reports pain poorly controlled, Reports ambulating normally Seaview: doing well, bottle feeding Objective - Vital Signs Latest vital signs: Vital Signs Temp Pulse Resp BP Pulse Ox 11/06/18 11:00 20 11/06/18 09:00 18 11/06/18 08:00 98.2 F 100 18 110/72 97 11/06/18 07:43 18 11/06/18 05:00 17 11/06/18 04:00 98.0 F 78 18 92/55 98 11/06/18 03:00 18 11/06/18 01:00 18 11/06/18 00:00 98.0 F 84 18 102/49 97 11/05/18 23:00 18 11/05/18 21:00 18 11/05/18 20:00 98.1 F 96 18 11/05/18 19:00 16 11/05/18 17:00 16 11/05/18 16:35 16 11/05/18 15:56 97 11/05/18 15:37 117/56 11/05/18 15:02 97.9 F 84 16 Intake and Output 11/05/18 11/06/18 11/06/18 22:59 06:59 14:59 Output Total 1500 250 350 Balance -1500 -250 -350 Output: Urine 1000 250 350 Estimated Blood Loss 500 Other: # Voids 1 - Exam Extremities: Present: normal. Absent: tenderness, edema Abdomen: Present: normal appearance, soft (Positive bowel sounds 4 ), tenderness. Absent: distention Incision: Present: normal, dry, intact. Absent: erythematous Uterus: Present: normal, firm. Absent: tenderness - Labs Labs: Abnormal Lab Results - Last 24 Hours (Table) 11/06/18 Range/Units 06:13 RBC 2.59 L (3.80-5.40) m/uL Hgb 9.3 L D (11.4-16.0) gm/dL Hct 27.3 L (34.0-46.0) % MCV 105.4 H (80.0-100.0) fL MCH 35.9 H (25.0-35.0) pg Neutrophils # 7.8 H (1.3-7.7) k/uL Assessment and Plan Assessment: Status post repeat section postoperative day #1 Plan: Will add [place] for breakthrough pain. Continue ambulation. Continue and postoperative care.
[2018-11-06] MEDS: HYDROcodone/APAP 5-325MG 1 EACH TAB PO PRN ×2 (13:28→21:00)
[2018-11-07] MEDS: IBUPROFEN 600 MG TAB PO PRN ×2 (00:43→08:49)
[2018-11-07] MEDS: HYDROcodone/APAP 5-325MG 1 EACH TAB PO PRN (06:08)
[2018-11-07] MEDS: SENNOSIDES-DOCUSATE SODIUM 1 EACH TAB PO SCH (08:51)
[2018-11-07 09:53] VITALS: BP 121/72; PULSE 75; RESP 16; TEMP 98.5
--- NOTE | 2018-11-07 10:50 | P.DS ---
Providers Date of admission: 11/05/18 05:51 Expected date of discharge: 11/07/18 Attending physician: Willie Adams Primary care physician: Celestino A [facility] Course: This is a 33-year-old female 5 para 4 at 39-0/7 weeks who presented for repeat low transverse section. She delivered a viable male with scores of 9 at 1 minute and 9 at 5 minutes and weight of 7 lbs. 2 oz. Her course was uncomplicated. Lochia is decreasing. She is passing flatus but no bowel movement yet. She is bottle feeding. Vital signs are stable. Abdomen is soft with fundus firm and nontender. Bowel sounds are present 4. Incision is clean dry and intact. Extremities show negative Homans. Impression is status post repeat section postoperative day #2. Plan is to discharge home today. Routine postoperative and instructions are given. She will be given a prescription for ibuprofen and Cal[place]. She was counseled regarding opioid use and she has signed a start taking opioid consent form. She is advised follow-up with Dr. Adams in 1 week in the office. She is advised to call the office if she has any further questions or concerns prior to her appointment time. Procedures: Repeat low transverse section on 11/05/2018 Patient Condition at Discharge: Stable Plan - Discharge Summary Discharge Rx Participant: Yes New Discharge Prescriptions: New HYDROcodone/APAP 5-325MG [Caliente 5-325] 1 each PO Q6HR PRN #28 tab PRN Reason: Moderate To Severe Pain Ibuprofen [Motrin] 600 mg PO Q6HR PRN #60 tab PRN Reason: Mild Pain Or Fever >= 100.5 Continue 114/Iron A-G/Folate 1 [Prenate Elite Tablet] 1 tab PO DAILY No Action Ferrous Sulfate [Iron (65 MG Elemental)] 325 mg PO DAILY Discharge Medication List 114/Iron A-G/Folate 1 [Prenate Elite Tablet] 1 tab PO DAILY 10/29/16 [ History] Ferrous Sulfate [Iron (65 MG Elemental)] 325 mg PO DAILY 11/03/18 [History] HYDROcodone/APAP 5-325MG [Cal[place] 5-325] 1 each PO Q6HR PRN #28 tab 11/07/18 [Rx] Ibuprofen [Motrin] 600 mg PO Q6HR PRN #60 tab 11/07/18 [Rx] Follow up Appointment(s)/Referral(s): Willie Adams MD [STAFF PHYSICIAN] - 1 Week Activity/Diet/Wound Care/Special Instructions: Instructions 1. Do not begin any exercise program for 3 weeks. 2. Do not resume sexual relations for 3 weeks or longer if uncomfortable. 3. You may take tub baths or showers at any time. 4. You may use tampons if desired after 3 weeks. 5. Keep the area of episiotomy (stitches) clean and dry. 6. If you are not nursing, wear a good fitting, supportive bra during the day and limit fluid intake for at least 1 week to prevent breast engorgement. 7. Call the office, [phone], within the next week to make appointment for your 6 week checkup if it has not already been made. 8. Report any of the following occurrences to the doctor promptly: a. Heavy, excessive bleeding b. Chills, fever c. Burning or frequency of urination d. Pain or redness and breasts if nursing e. Increasing pain or swelling in episiotomy (stitches). In addition to the above instructions, the following additional should be followed: 1. No heavy lifting or straining (exercising) until after 6 week checkup. 2. Keep abdominal incision clean and dry: You may wear a dressing if more comfortable. 3. Make office appointment for 10 days after going home or as instructed by her doctor. Discharge Disposition: HOME SELF-CARE
== END 2018-11-07 14:00 | disposition home or self-care (01) | DRG 788 ==
LOC: 4FBP 05:51
PROVIDERS: ADMIT Obstetrics & Gynecology; ATTEND Obstetrics & Gynecology
PROC: 10D00Z1 Extraction of Products of Conception, Low, Open Approach (ICD-10-PCS; principal; 2018-11-05 07:59)
DX: O34.211 Maternal care for low transverse scar from previous cesarean delivery (principal); O69.81X0 Labor and delivery complicated by cord around neck, without compression, not applicable or unspecified; O99.52 Diseases of the respiratory system complicating childbirth; Z37.0 Single live birth; Z3A.39 39 weeks gestation of pregnancy; Z79.899 Other long term (current) drug therapy; Z86.19 Personal history of other infectious and parasitic diseases; Z87.891 Personal history of nicotine dependence; Z82.5 Family history of asthma and other chronic lower respiratory diseases; Z82.49 Family history of ischemic heart disease and other diseases of the circulatory system; Z82.3 Family history of stroke; Z83.49 Family history of other endocrine, nutritional and metabolic diseases
CPT/HCPCS: 85025; 86850; 86900; 86901

== ENCOUNTER → 2019-09-30 | Outpatient (CLI) | payer OTHER ==
--- NOTE | 2019-09-30 19:44 | MR ---
EXAMINATION TYPE: MR brain/cspine wo DATE OF EXAM: 09/30/2019 COMPARISON: NONE HISTORY: Migraines, double vision, confusion, Family hx of Chiari Malformation TECHNIQUE: T1-weighted sagittal, T2, FLAIR, and diffusion axial, and T2 coronal coronal views of the brain are submitted. FINDINGS: There is no evidence of acute ischemia. The ventricles, basal cisterns, and sulci overlying the conv exities are consistent with the patient's age. There is no mass effect. There is a Chiari malformation with the cerebellar tonsils measuring approximately 5 mm below the for amen magnum. 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 Sella turcica has a normal appearance. No cerebellopontine angle mass. Changes of chronic mild sinusitis no abnormal signal within the visua lized white matter. IMPRESSION: 1. No acute intracranial process EXAMINATION TYPE: MR brain/cspine wo DATE OF EXAM: 09/30/2019 COMPARISON: NONE HISTORY: Migraines, double vision, confusion, Family hx of Chiari Malformation TECHNIQUE: T1 sagittal and coronal, T2 sagittal, and gradient echo axial views of the cervical spine are submitted. FINDINGS: Cerebellar tonsils measures 6 mm below the foramen magnum are compatible with Chiari malfor mation. There is no abnormal signal seen within the spinal cord or paraspinal soft tissues. At C2-3 there is no evidence of disc herniation or canal stenosis. No foraminal encroachment. At C3-4 there is no evidence of disc herniation or canal stenosis. No foraminal encroachment At C4-5 there is no evidence of disc herniation or canal stenosis. No foraminal encroachment At C5-6 there is mild central disc bulging but no evidence of canal stenosis. Mild uncovertebral join t hypertrophy bilaterally. No nerve root contact or spinal cord contact. Neural foramina patent bilat erally. At C6-7 there is no evidence of disc herniation or canal stenosis. No foraminal encroachment At C7-T1 there is no evidence of disc herniation or canal stenosis. No foraminal encroachment IMPRESSION: 1. Chiari malformation with cerebellar tonsils measuring approximately 6 mm below the foramen magnum . 2. Disc bulging C5-C6 but no evidence of canal stenosis or foraminal encroachment.
== END | disposition home or self-care (01) ==
LOC: RADMRIMAIN 18:44
PROVIDERS: ATTEND Neurological Surgery
DX: Q07.9 Congenital malformation of nervous system, unspecified (principal); G93.5 Compression of brain; M50.222 Other cervical disc displacement at C5-C6 level
CPT/HCPCS: 70551; 72141

== ENCOUNTER 2019-10-17 18:43 | Emergency (ER) | payer OTHER ==
[2019-10-17] MEDS ORDERED: SODIUM CHLORIDE 0.9% 1,000 ML IV STA (20:22)
[2019-10-17] MEDS ORDERED: ONDANSETRON 4 MG/2 ML VIAL IVP STA (20:22)
[2019-10-17] MEDS ORDERED: KETOROLAC 30 MG/ML 1 ML VIAL IVP STA (20:22)
[2019-10-17 21:07] LABS: Basophils # (A) 0.1 k/uL (0-0.2); Basophils % (A) 1 %; Eosinophils # (A) 0.2 k/uL (0-0.7); Eosinophils % (A) 2 %; HCT 40.7 % (34.0-46.0); Lymphocytes # (A) 1.5 k/uL (1.0-4.8); Lymphocytes % (A) 17 %; MCH 32.9 pg (25.0-35.0); MCV 102.9 fL (80.0-100.0); Macrocytosis Slight; Mean Platelet Volume 8.2; Monocytes # (A) 0.3 k/uL (0-1.0); Monocytes % (A) 4 %; Neutrophils # (A) 6.8 k/uL (1.3-7.7); Neutrophils % (A) 75 %; Platelet Count 293 k/uL (150-450); RBC 3.95 m/uL (3.80-5.40); RDW 12.7 % (11.5-15.5); WBC 9.1 k/uL (3.8-10.6)
[2019-10-17 21:19] LABS: ALT 19 U/L (4-34); AST 28 U/L (14-36); African American GFR (CKD) >90 (>60 ml/min/1.73 sqM); Albumin 4.1 g/dL (3.5-5.0); Alkaline Phosphatase 56 U/L (38-126); Anion Gap 7 mmol/L; Blood Urea Nitrogen 17 mg/dL (7-17); Calcium 9.1 mg/dL (8.4-10.2); Carbon Dioxide 24 mmol/L (22-30); Chloride 109 mmol/L (98-107); Glucose 119 mg/dL (74-99); Magnesium 2.3 mg/dL (1.6-2.3); Non-African American GFR(CKD) >90 (>60 ml/min/1.73 sqM); Potassium 4.2 mmol/L (3.5-5.1); Sodium 140 mmol/L (137-145); Total Bilirubin 0.3 mg/dL (0.2-1.3); Total Protein 7.1 g/dL (6.3-8.2)
[2019-10-17 21:28] LABS: D-Dimer 0.29 mg/L FEU (<0.60); Partial Thromboplastin Time 24.3 sec (22.0-30.0); Prothrombin Time 9.9 sec (9.0-12.0)
--- NOTE | 2019-10-17 21:59 | XR ---
EXAMINATION TYPE: XR chest 2V DATE OF EXAM: 10/17/2019 COMPARISON: NONE HISTORY: Chest pain TECHNIQUE: Frontal and lateral views of the chest are obtained. FINDINGS: There is no focal air space opacity, pleural effusion, or pneumothorax seen. The cardiac silhouette size is within normal limits. The osseous structures are intact. IMPRESSION: No acute cardiopulmonary process.
--- NOTE | 2019-10-17 23:00 | US ---
EXAMINATION TYPE: US gallbladder DATE OF EXAM: 10/17/2019 COMPARISON: NONE CLINICAL HISTORY: pain. Pain x 1 year. EXAM MEASUREMENTS: Liver Length: 15.6 cm Gallbladder Wall: 0.18 cm CBD: 0.23 cm Right Kidney: 9.8 x 5.2 x 4.0 cm Limited due to gas. Pancreas: Appears to be wnl. Liver: Appears to be wnl. Gallbladder: Appears to be anechoic. Evidence for sonographic Mckeon's sign: No CBD: Appears to be wnl Right Kidney: No hydronephrosis or masses seen IMPRESSION: Negative exam. No gallstones or dilated ducts.
--- NOTE | 2019-10-17 23:19 | ED ---
General Adult HPI - General Chief complaint: Chest Pain Stated complaint: chest pain Time Seen by Provider: 10/17/19 19:05 Source: patient Mode of arrival: ambulatory Limitations: no limitations - History of Present Illness Initial comments: The patient is a 34-year-old female with past history of chiari malformation who presents to the emergency room with reported epigastric pain for the past 2 weeks. She denies any provocative factors. States that she will have intermittent pressure in her epigastric region which radiates up to her chest. The pain is so severe that I will make her short of breath. Denies that it is worse with food intake. Reports nausea without any vomiting. No ripping or tearing sensation to her back. She does use NSAIDs daily. Denies alcohol use. No history of EGD or colonoscopy. She denies any melanotic stools or hematochezia. No constipation or diarrhea. Denies dysuria, hematuria or difficult voiding. Denies concern for . States she is currently on her menstrual cycle. She denies a history of DVT or PE. No lower trauma swelling. Denies calf pain or swelling. No recent travel or prolonged immobility. Denies family history of cardiac disease. There are no other alleviating, precipitating or modifying factors - Related Data Home Medications Medication Instructions Recorded Confirmed 114/Iron A-G/Folate 1 1 tab PO DAILY 10/29/16 11/05/18 [Prenate Elite Tablet] Ferrous Sulfate [Iron (65 MG 325 mg PO DAILY 11/03/18 11/05/18 Elemental)] Previous Rx's Medication Instructions Recorded HYDROcodone/APAP 5-325MG [[place] 1 each PO Q6HR PRN #28 tab 11/07/18 5-325] Ibuprofen [Motrin] 600 mg PO Q6HR PRN #60 tab 11/07/18 Omeprazole 20 mg PO DAILY #30 capsule. 10/17/19 Ondansetron Odt [Zofran Odt] 4 mg PO Q8HR PRN #10 tab 10/17/19 Ranitidine HCl [Zantac] 150 mg PO BID PRN #20 tablet 10/17/19 Allergies Allergy/AdvReac Type Severity Reaction Status Date / Time No Known Allergies Allergy Verified 04/15/17 06:00 Review of Systems ROS Statement: Those systems with pertinent positive or pertinent negative responses have been documented in the HPI. ROS Other: All systems not noted in ROS Statement are negative. 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 Mother Family Medical History: Hyperlipidemia, Hypertension, Thyroid Disorder Additional Family Medical History / Comment(s): Mother is alive at age 55 with history of asthma, hypothyroidism, TIA, hypertension, hyperlipidemia. Brother(s) Additional Family Medical History / Comment(s): Patient has 2 brothers with no major medical problems. Sister(s) Additional Family Medical History / Comment(s): Patient has 3 half sisters with no major medical problems. General Exam Limitations: no limitations General appearance: alert, in no apparent distress Head exam: Present: atraumatic, normocephalic, normal inspection Eye exam: Present: normal appearance, PERRL, EOMI. Absent: scleral icterus, conjunctival injection, periorbital swelling ENT exam: Present: normal exam, mucous membranes moist Neck exam: Present: normal inspection. Absent: tenderness, meningismus, lymphadenopathy Respiratory exam: Present: normal lung sounds bilaterally. Absent: respiratory distress, wheezes, rales, rhonchi, stridor Cardiovascular Exam: Present: regular rate, normal rhythm, normal heart sounds. Absent: systolic murmur, diastolic murmur, rubs, gallop, clicks GI/Abdominal exam: Present: soft, tenderness (epigastric/ruq), normal bowel sounds. Absent: distended, guarding, rebound, rigid Extremities exam: Present: normal inspection, full ROM, normal capillary refill. Absent: tenderness, pedal edema, joint swelling, calf tenderness Back exam: Present: normal inspection Neurological exam: Present: alert, oriented X3, CN II-XII intact Psychiatric exam: Present: normal affect, normal mood Skin exam: Present: warm, dry, intact, normal color. Absent: rash Course Vital Signs 10/17/19 10/17/19 10/17/19 19:02 22:32 23:57 Temperature 98.0 F 97 F L Pulse Rate 68 50 L 55 L Respiratory 18 18 20 Rate Blood Pressure 102/56 90/44 102/60 O2 Sat by Pulse 98 98 99 Oximetry EKG Findings - EKG Comments: EKG Findings:: EKG demonstrates a normal sinus rhythm with ventricular rate of 67. LA interval 146. QRS 88. QTC of 431. There is an inverted T-wave in lead 3. No acute ST segment elevations. No signs of Parkinson White or Brugada syndrome. This is compared to the patient's previous EKG she did have inverted T waves in 2017 Medical Decision Making - Medical Decision Making Upon arrival the patient was placed into room 19. A thorough history and physic al exam was performed. I did recommend laboratory studies. Peripheral IV was established and the patient was given 4 mg of Zofran for nausea and 15 mg of toradol for her pain. I also gave her a liter bolus of normal saline. CBC is unremarkable. Coagulation studies are normal. D-dimer is negative at 0.29. The patient is perk negative. CMP shows a chloride of 109. Troponin is negative. Chest x-ray demonstrates no acute intrathoracic process. Gallbladder ultrasound demonstrates no acute findings. I did reevaluate the patient. She does report to improvement in her symptoms. She have a 12-lead EKG which was performed and compared to her previous EKG in 2017 and appears the same. I did discuss diagnosis, differential and treatment options. At this time the patient does feel comfortable going home. She does have follow-up appointment with her primary care physician tomorrow. I did discharge her that she needs further testing to include a HIDA scan and possible EGD. She is to hold off on taking NSAIDs until she is further evaluated. I'll so recommend that the patient have a full cardiac workup to include Holter monitoring and echo. The patient understood this. She will be given prescriptions for Zantac, Zofran and omeprazole. I did give her follow-up information for Dr. Alonzo and Dr. Sykes. She should return to the emergency room if she has any new or worse claudia symptoms. The patient understood and was discharged home in stable condition - Lab Data Result diagrams: 10/17/19 20:50 10/17/19 20:50 Lab Results 10/17/19 10/17/19 10/17/19 Range/Units 20:50 20:50 20:50 WBC 9.1 (3.8-10.6) k/uL RBC 3.95 (3.80-5.40) m/uL Hgb 13.0 (11.4-16.0) gm/dL Hct 40.7 (34.0-46.0) % MCV 102.9 H (80.0-100.0) fL MCH 32.9 (25.0-35.0) pg MCHC 32.0 (31.0-37.0) g/dL RDW 12.7 (11.5-15.5) % Plt Count 293 (150-450) k/uL Neutrophils % 75 % Lymphocytes % 17 % Monocytes % 4 % Eosinophils % 2 % Basophils % 1 % Neutrophils # 6.8 (1.3-7.7) k/uL Lymphocytes # 1.5 (1.0-4.8) k/uL Monocytes # 0.3 (0-1.0) k/uL Eosinophils # 0.2 (0-0.7) k/uL Basophils # 0.1 (0-0.2) k/uL Macrocytosis Slight PT 9.9 (9.0-12.0) sec INR 1.0 (<1.2) APTT 24.3 (22.0-30.0) sec D-Dimer 0.29 (<0.60) mg/L FEU Sodium 140 (137-145) mmol/L Potassium 4.2 (3.5-5.1) mmol/L Chloride 109 H (98-107) mmol/L Carbon Dioxide 24 (22-30) mmol/L Anion Gap 7 mmol/L BUN 17 (7-17) mg/dL Creatinine 0.53 (0.52-1.04) mg/dL Est GFR (CKD-EPI)AfAm >90 (>60 ml/min/1.73 sqM) Est GFR (CKD-EPI)NonAf >90 (>60 ml/min/1.73 sqM) Glucose 119 H (74-99) mg/dL Calcium 9.1 (8.4-10.2) mg/dL Magnesium 2.3 (1.6-2.3) mg/dL Total Bilirubin 0.3 (0.2-1.3) mg/dL AST 28 (14-36) U/L ALT 19 (4-34) U/L Alkaline Phosphatase 56 (38-126) U/L Troponin I (0.000-0.034) ng/mL Total Protein 7.1 (6.3-8.2) g/dL Albumin 4.1 (3.5-5.0) g/dL Lipase 233 (23-300) U/L 10/17/19 Range/Units 20:50 WBC (3.8-10.6) k/uL RBC (3.80-5.40) m/uL Hgb (11.4-16.0) gm/dL Hct (34.0-46.0) % MCV (80.0-100.0) fL MCH (25.0-35.0) pg MCHC (31.0-37.0) g/dL RDW (11.5-15.5) % Plt Count (150-450) k/uL Neutrophils % % Lymphocytes % % Monocytes % % Eosinophils % % Basophils % % Neutrophils # (1.3-7.7) k/uL Lymphocytes # (1.0-4.8) k/uL Monocytes # (0-1.0) k/uL Eosinophils # (0-0.7) k/uL Basophils # (0-0.2) k/uL Macrocytosis PT (9.0-12.0) sec INR (<1.2) APTT (22.0-30.0) sec D-Dimer (<0.60) mg/L FEU Sodium (137-145) mmol/L Potassium (3.5-5.1) mmol/L Chloride (98-107) mmol/L Carbon Dioxide (22-30) mmol/L Anion Gap mmol/L BUN (7-17) mg/dL Creatinine (0.52-1.04) mg/dL Est GFR (CKD-EPI)AfAm (>60 ml/min/1.73 sqM) Est GFR (CKD-EPI)NonAf (>60 ml/min/1.73 sqM) Glucose (74-99) mg/dL Calcium (8.4-10.2) mg/dL Magnesium (1.6-2.3) mg/dL Total Bilirubin (0.2-1.3) mg/dL AST (14-36) U/L ALT (4-34) U/L Alkaline Phosphatase (38-126) U/L Troponin I <0.012 (0.000-0.034) ng/mL Total Protein (6.3-8.2) g/dL Albumin (3.5-5.0) g/dL Lipase (23-300) U/L Disposition Clinical Impression: Epigastric abdominal pain Disposition: HOME SELF-CARE Condition: Stable Instructions (If sedation given, give patient instructions): Epigastric Pain (ED) Additional Instructions: Please follow-up with your primary care doctor tomorrow. You may need further studies to include a HIDA scan or an EGD. Return to the emergency room for any new or worsening symptoms Prescriptions: Omeprazole 20 mg PO DAILY #30 capsule. Ranitidine HCl [Zantac] 150 mg PO BID PRN #20 tablet PRN Reason: Heartburn Ondansetron Odt [Zofran Odt] 4 mg PO Q8HR PRN #10 tab PRN Reason: Nausea Is patient prescribed a controlled substance at d/c from ED?: No Referrals: Celestino Frey MD [Primary Care Provider] - 1-2 days Stefan Sykes MD [STAFF PHYSICIAN] - 1-2 days Be Carmona MD [STAFF PHYSICIAN] - 1-2 days Time of Disposition: 23:28
[2019-10-17 23:58] VITALS: BP 102/60; PULSE 55; RESP 20; TEMP 97
== END 2019-10-17 23:59 | disposition home or self-care (01) ==
LOC: EC 18:43
DX: R10.13 Epigastric pain (principal); R11.0 Nausea; R07.9 Chest pain, unspecified; Z87.891 Personal history of nicotine dependence
CPT/HCPCS: 36415; 93005; 85379; 80053; 83690; 83735; 84484; 85025; 85610; 85730; 71046; 76705; 99285; 96374; 96375; 96361; J2405; J1885

== ENCOUNTER → 2020-11-07 | Outpatient (CLI) | payer OTHER ==
--- NOTE | 2020-11-07 15:58 | US ---
EXAMINATION TYPE: Transabdominal DATE OF EXAM: 11/07/2020 3:40 PM COMPARISON: NONE CLINICAL HISTORY: Z36 Confirm dates. EXAM PERFORMED: EXAM MEASUREMENTS: GESTATIONAL AGE / DATING Physician Established: Not yet established Dates by LMP: (7 weeks/5 days) EDC: 06-21-21 Dates by First Scan: No previous this is first scan Dates by Current Scan for: (8 weeks/0 days) EDC: 06/19/21 MATERNAL ANATOMY Uterus: 9.2 x 6.5 x 6.8cm Right Ovary: 3.0 x 2.5 x 2.7cm Left Ovary: obscured by overlying bowel gas Post CDS / Adnexa: wnl Presence of free fluid: no Presence of corpus luteal cyst: measuring 1.9 x 1.7 x 1.4cm Presence of subchorionic bleed: no GESTATION / SURVEY CRL: 1.6 (8 weeks/0 days) Yolk Sac (normal less than 6mm): 3mm Heart Rate: 165 bpm Rhythm: Normal IUP: Viable IUP Date of LMP: 09/14/20 Beta HcG (if available): Not available at this time IMPRESSION: Single viable intrauterine . Corpus luteal cyst.
[2020-11-07 16:31] LABS: HCT 37.7 % (34.0-46.0); HGB 12.4 gm/dL (11.4-16.0); MCH 33.1 pg (25.0-35.0); MCHC 32.8 g/dL (31.0-37.0); MCV 100.8 fL (80.0-100.0); Mean Platelet Volume 7.2; Platelet Count 290 k/uL (150-450); RBC 3.74 m/uL (3.80-5.40); RDW 13.1 % (11.5-15.5); WBC 8.3 k/uL (3.8-10.6)
[2020-11-07 16:53] LABS: African American GFR (CKD) >90 (>60 ml/min/1.73 sqM); Glucose 85 mg/dL (74-99); Non-African American GFR(CKD) >90 (>60 ml/min/1.73 sqM)
[2020-11-08 04:11] LABS: Toxoplasma Antibody (IgG) <3.0 IU/mL (<7.2); Toxoplasma Antibody (IgM) <3.0 AU/mL (<8.0)
[2020-11-08 04:18] LABS: Hepatitis B Surface Antigen Non-Reactive (Non-Reactive)
[2020-11-08 05:50] LABS: HIV 2 AB Non-Reactive (Non-Reactive); HIV AB P24 Non-Reactive (Non-Reactive); HIV P24 AG Non-Reactive (Non-Reactive)
== END | disposition home or self-care (01) ==
LOC: RADUSWWP 15:02
PROVIDERS: ATTEND Obstetrics & Gynecology
DX: O34.81 Maternal care for other abnormalities of pelvic organs, first trimester (principal); N83.10 Corpus luteum cyst of ovary, unspecified side; Z3A.08 8 weeks gestation of pregnancy; O26.811 Pregnancy related exhaustion and fatigue, first trimester
CPT/HCPCS: 76801; 76817; 82565; 82947; 85027; 86762; 86777; 86778; 86780; 86850; 86900; 86901; 87340; 87390

== ENCOUNTER → 2021-03-18 | Outpatient (CLI) | payer OTHER ==
[2021-03-18 15:07] LABS: HCT 32.2 % (37.2-46.3); HGB 10.4 g/dL (12.0-15.0); MCH 34.7 pg (27.0-32.0); MCHC 32.3 g/dL (32.0-37.0); MCV 107.3 fL (80.0-97.0); Mean Platelet Volume 9.7 fL (9.5-12.2); Platelet Count 232 X 10*3/uL (140-440); RDW 13.7 % (11.5-14.5); WBC 10.57 X 10*3/uL (4.50-10.00)
== END | disposition home or self-care (01) ==
LOC: LABWHC1 09:34
PROVIDERS: ATTEND Obstetrics & Gynecology
DX: Z34.82 Encounter for supervision of other normal pregnancy, second trimester (principal); Z3A.00 Weeks of gestation of pregnancy not specified
CPT/HCPCS: 36415; 82950; 85027

== ENCOUNTER 2021-06-14 06:03 | Inpatient (IN) | payer OTHER ==
--- NOTE | 2021-06-13 12:54 | P.HPOB ---
History of Present Illness H&P Date: 06/13/21 Chief Complaint: Repeat section and requesting tubal ligation. This patient is a pleasant 35-year-old 6 para 5 female estimated date of confinement 06/21/2021 estimated gestational age 39-0/7 weeks who presents to labor and delivery for elective repeat section and also requesting permanent sterilization. Patient's history is such that she's had 3 vaginal deliveries and 2 sections. She is now requesting repeat section and also desires permanent sterilization. is complicated by the father the baby having a known carrier of SMA. Patient was referred to maternal- medicine and her testing was negative and therefore she is not a carrier. Patient also has had previous back surgery 2 and I have discussed with anesthesia and the recommendations are to proceed with general anesthetic for surgery. Patient does have a past history unfortunately of opioid use due to her back problems. Patient has been followed with nonstress testing and growth ultrasounds. 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 Mother Family Medical History: Hyperlipidemia, Hypertension, Thyroid Disorder Additional Family Medical History / Comment(s): Mother is alive at age 55 with h istory of asthma, hypothyroidism, TIA, hypertension, hyperlipidemia. Brother(s) Additional Family Medical History / Comment(s): Patient has 2 brothers with no major medical problems. Sister(s) Additional Family Medical History / Comment(s): Patient has 3 half sisters with no major medical problems. Medications and Allergies Home Medications Medication Instructions Recorded Confirmed Type 114/Iron A-G/Folate 1 1 tab PO DAILY 10/29/16 11/05/18 History [Prenate Elite Tablet] Ferrous Sulfate [Iron (65 MG 325 mg PO DAILY 11/03/18 11/05/18 History Elemental)] HYDROcodone/APAP 5-325MG [[employer] 1 each PO Q6HR PRN #28 tab 11/07/18 Rx 5-325] Ibuprofen [Motrin] 600 mg PO Q6HR PRN #60 tab 11/07/18 Rx Omeprazole 20 mg PO DAILY #30 capsule. 10/17/19 Rx Ondansetron Odt [Zofran Odt] 4 mg PO Q8HR PRN #10 tab 10/17/19 Rx raNITIdine HCL [Zantac] 150 mg PO BID PRN #20 tablet 10/17/19 Rx Allergies Allergy/AdvReac Type Severity Reaction Status Date / Time No Known Allergies Allergy Verified 04/15/17 06:00 Exam - OBG Physical Exam Abdomen: bowel sounds normal, no diffuse tenderness, no bruit present, no guarding noted, no hepatomegaly, no splenomegaly, no mass Vulva: both: normal Vagina: normal moisture, no discharge Cervix: no lesion, no discharge Uterus: enlarged (Fundal height is 39 cm.) Results blood work shows she is A positive, rubella immune, RPR nonreactive, hepatitis B negative, HIV is nonreactive, Glucola was normal, group B strep was positive, growth ultrasounds have been normal, patient's SMA testing was negative, 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 Assessment and Plan Assessment: This is a pleasant 35-year-old 6 para 5 female 39-0/7 weeks gestation admitted to labor and delivery for elective repeat section and also requesting permanent sterilization. Due to the patient's previous back surgery 2 I have discussed with anesthesia staff recommendations are to proceed with general anesthetic as a method of anesthesia for delivery. Plan is repeat low transverse section and bilateral partial salpingectomy. Patient does understand that a tubal ligation is considered permanent, there is a failure rate of less than 5 per thousand procedures done. She also understands surgery itself and apparently has risks including risks of infection, bleeding, possible injury to bowel, bladder, vessels, and/or other organs. All the patient's questions are answered and a written consent obtained. (1) Previous back surgery Status: Acute Code(s): Z98.890 - OTHER SPECIFIED POSTPROCEDURAL STATES SNOMED Code(s): 754233326 (2) 39 weeks gestation of Status: Acute Code(s): Z3A.39 - 39 WEEKS GESTATION OF SNOMED Code(s): 33007508 (3) Previous delivery affecting Status: Acute Code(s): O34.219 - MATERNAL CARE FOR UNSP TYPE SCAR FROM PREVIOUS DEL SNOMED Code(s): 325922015 (4) Family planning Status: Acute Code(s): Z30.09 - ENCOUNTER FOR OTH GENERAL CNSL AND ADVICE ON CONTRACEPTION SNOMED Code(s): 105241333
[2021-06-14] MEDS ORDERED: LACTATED RINGERS 1,000 ML IV SCH (06:22)
[2021-06-14] MEDS ORDERED: CITRIC ACID-SODIUM CITRATE 15 ML CUP PO ONE (06:22)
[2021-06-14] MEDS ORDERED: LACTATED RINGERS 1,000 ML IV ONE (06:22)
[2021-06-14 06:41] LABS: Basophils # (A) 0.1 k/uL (0-0.2); Basophils % (A) 0 %; Eosinophils # (A) 0.2 k/uL (0-0.7); Eosinophils % (A) 2 %; HCT 35.7 % (34.0-46.0); HGB 12.2 gm/dL (11.4-16.0); Lymphocytes # (A) 1.7 k/uL (1.0-4.8); Lymphocytes % (A) 14 %; MCH 36.5 pg (25.0-35.0); MCHC 34.3 g/dL (31.0-37.0); MCV 106.5 fL (80.0-100.0); Macrocytosis Moderate; Monocytes # (A) 0.7 k/uL (0-1.0); Monocytes % (A) 6 %; Neutrophils # (A) 8.7 k/uL (1.3-7.7); Neutrophils % (A) 75 %; Platelet Count 306 k/uL (150-450); RBC 3.35 m/uL (3.80-5.40); RDW 13.1 % (11.5-15.5); WBC 11.6 k/uL (3.8-10.6)
[2021-06-14] MEDS ORDERED: fentaNYL (PF) 50 MCG/ML 2 ML AMP ONE (07:55)
[2021-06-14] MEDS ORDERED: ONDANSETRON 4 MG/2 ML VIAL ONE (07:55)
[2021-06-14] MEDS ORDERED: KETOROLAC 15 MG/ML 1 ML VIAL ONE (07:55)
[2021-06-14] MEDS ORDERED: HYDROmorphone (PF) 1 MG/ML ONE (07:55)
[2021-06-14] MEDS ORDERED: OXYTOCIN 30 UNITS/500 ML NS BAG IV ONE (07:55)
[2021-06-14] MEDS ORDERED: PROPOFOL 10 MG/ML 20 ML VIAL IV ONE (07:55)
[2021-06-14] MEDS ORDERED: ePHEDrine SULFATE/0.9% NACL/PF 50 MG/5 ML SYRINGE IV ONE (07:55)
[2021-06-14] MEDS ORDERED: SUCCINYLCHOLINE CHLORIDE 100 MG/5 ML SYR IV ONE (07:55)
[2021-06-14] MEDS ORDERED: WATER FOR INJECTION, STERILE 10 ML VIAL IV ONE (07:55)
[2021-06-14] MEDS ORDERED: DEXAMETHASONE SOD PHOSPHATE 10 MG/ML 1 ML VIAL ONE (07:55)
[2021-06-14] MEDS ORDERED: HYDROcodone/APAP 5-325MG 1 EACH TAB PO PRN (08:43)
[2021-06-14] MEDS ORDERED: ONDANSETRON 4 MG/2 ML VIAL IVP PRN (08:43)
[2021-06-14] MEDS ORDERED: SIMETHICONE 80 MG CHEWABLE PO PRN (08:43)
[2021-06-14] MEDS ORDERED: diphenhydrAMINE 50 MG/ML 1 ML VIAL IVP PRN (08:43)
[2021-06-14] MEDS ORDERED: HYDROmorphone PCA 10 MG/50 ML BAG IV PRN (08:43)
[2021-06-14] MEDS ORDERED: ZOLPIDEM 5 MG TAB PO PRN (08:43)
[2021-06-14] MEDS ORDERED: METOCLOPRAMIDE 5 MG/ML 2 ML VIAL IVP PRN (08:43)
[2021-06-14] MEDS ORDERED: NALOXONE 0.4 MG/ML 1 ML VIAL IV PRN (08:43)
[2021-06-14] MEDS ORDERED: OXYTOCIN 30 UNITS/500 ML NS 30 UNIT in SALINE 1 500ML.BAG IV SCH (08:43)
[2021-06-14] MEDS ORDERED: diphenhydrAMINE 25 MG CAP PO PRN (08:43)
[2021-06-14] MEDS ORDERED: LANOLIN CREAM 5 GM TUBE TOPICAL PRN (08:43)
--- NOTE | 2021-06-14 08:52 | P.OP ---
Date of Procedure: 06/14/21 Preoperative Diagnosis: #1: 39-0/7 week intrauterine . #2: Previous section desires repeat. #3: Multi parity desires permanent sterilization Postoperative Diagnosis: Same Procedure(s) Performed: Repeat low transverse section and bilateral partial salpingectomy Anesthesia: LSIA Surgeon: Willie Adams Project Director #1: Alina Walters Estimated Blood Loss (ml): 600 Pathology: other (Placenta and bilateral fallopian tube segments) Condition: stable Disposition: floor Indications for Procedure: Please see dictated H&P for intimate details of this patient's admission. Brief summary this is a pleasant 35-year-old 6 para 5 female 39 weeks gestation admitted to labor and delivery for elective repeat section and also requesting permanent sterilization. Patient understands a tubal ligation is considered permanent although there is a failure rate of less than 5 per thousand procedures done. Patient also understands surgery itself and apparently has risks including risks of infection, bleeding, possible injury bowel, bladder, vessels, and/or other organs. All the patient's questions are answered and written consent obtained. Operative Findings: This is a viable male infant Apgars 9 and 9 delivery time is 0805 hrs. The uterus, tubes, and ovaries appeared normal. Description of Procedure: This patient has a Causey catheter placed to straight drain. She is subsequently taken to the operating room where she is laid in the supine position. Secondary to her previous back surgery 2 was recommended she have general anesthetic. After the appropriate timeout, she has abdominal prep and drape. At this time she undergoes rapid sequence general endotracheal anesthesia. With adequate level of anesthesia scalpels taken Pfannenstiel skin incision is made. A second scalpel is taken down the fascia and the fascia scored with a knife. Fascial incision extended bilaterally using the Daniels scissors. Fascia is dissected off the rectus muscles sharply. Rectus muscles are and the peritoneum identified and entered sharply. Peritoneal incision extended superior and inferior without difficulty. Bladder blade is then placed. Bladder peritoneum taken sharply off the lower uterine segment. Scalpels taken a low transverse uterine incision is made. Using a hemostat I into the uterine cavity bluntly and there is loss of copious amount of clear fluid. 's head is then guided through the incision with fundal pressure delivered. Mouth and nares are bulb suctioned. With more fundal pressure delivered the rest this 's body . This is a vigorous viable male Apgars are 8 and 9 delivery time is 0805 hrs. After delivery of the the umbilical cord is doubly clamped and cut of note there was a true knot in the umbilical cord. The placenta is then manually extracted intact. This is handed off to pathology. The uterus is then externalized. Uterine incision demarcated with Kapoor clamps and then closed using 2 layers running locked fashion. Excellent hemostasis is noted. Then turned my attention to the left fallopian tube and approximately 4 cm from the cornual insertion a small window is made to the mesial salpinx with Bovie cautery. Using a 2-0 silk I doubly ligate a 1-2 cm segment of the fallopian tube. This is excised and handed off to pathology. Cauterization is done of the tubal ends. Excellent hemostasis is noted. Turned my attention of the right fallopian tube and using a similar technique a segment of the right fallopian tube is excised. With this completed the excess fluid is removed from the abdomen and pelvis. Uterus placed back into the abdomen. Parietal peritoneum was then identified with 3 hemostats. I do inspect the fallopian tube ends and the uterine incision and all. Hemostatic. The peritoneum was then closed using 0 Vicryl running fashion. Rectus muscles are reapproximated in 0 Vicryl interrupted fashion. One [id number] stitches placed on the re ctus muscle on the left side. Excellent hemostasis is noted. The fascia is then closed using running 0 PDS. Fascial incision is intact and hemostatic. Subcutaneous tissues and closed using a 3-0 Vicryl. Skin is and closed using mare. All counts are correct 3. There are no complications. Patient is awakened from anesthesia and taken to her birthing suite in satisfactory condition.
[2021-06-14] MEDS ORDERED: METHYLERGONOVINE 0.2 MG/ML 1 ML AMP IM ONE (10:10)
[2021-06-14] MEDS: SENNOSIDES-DOCUSATE SODIUM 1 EACH TAB PO SCH ×2 (12:04→19:46)
[2021-06-14] MEDS: ACETAMINOPHEN TAB 500 MG TAB PO SCH ×2 (12:04→19:46)
[2021-06-14] MEDS: KETOROLAC 15 MG/ML 1 ML VIAL IVP SCH ×2 (16:13→23:56)
[2021-06-14] MEDS: LACTATED RINGERS 1,000 ML IV SCH (20:35)
[2021-06-14] MEDS: IBUPROFEN 600 MG TAB PO SCH ×2 (20:35→20:36)
[2021-06-15] MEDS: IBUPROFEN 600 MG TAB PO SCH ×4 (02:49→20:39)
[2021-06-15] MEDS: ACETAMINOPHEN TAB 500 MG TAB PO SCH ×4 (03:01→19:41)
[2021-06-15] MEDS: LACTATED RINGERS 1,000 ML IV SCH ×3 (03:02→19:41)
[2021-06-15] MEDS: KETOROLAC 15 MG/ML 1 ML VIAL IVP SCH ×2 (06:06→19:41)
[2021-06-15 08:30] LABS: Basophils % (A) 0 %; Eosinophils # (A) 0.1 k/uL (0-0.7); Eosinophils % (A) 1 %; HCT 24.7 % (34.0-46.0); Lymphocytes % (A) 14 %; MCH 36.4 pg (25.0-35.0); MCHC 33.8 g/dL (31.0-37.0); MCV 107.7 fL (80.0-100.0); Macrocytosis Moderate; Mean Platelet Volume 7.3; Monocytes # (A) 0.7 k/uL (0-1.0); Monocytes % (A) 5 %; Neutrophils # (A) 11.2 k/uL (1.3-7.7); Neutrophils % (A) 79 %; Platelet Count 261 k/uL (150-450); RBC 2.29 m/uL (3.80-5.40); RDW 13.2 % (11.5-15.5); WBC 14.2 k/uL (3.8-10.6)
[2021-06-15 08:39] LABS: HGB 8.3 gm/dL (11.4-16.0)
[2021-06-15] MEDS: CEPHALEXIN 500 MG CAP PO SCH ×5 (08:58→22:24)
--- NOTE | 2021-06-15 11:22 | P.PNOBGPC ---
Subjective - Subjective Principal diagnosis: Status post repeat section postoperative day #1 Interval history: Patient is doing well. She is passing flatus but no bowel movement yet. She is ambulating. She is urinating. She is bottle feeding. Baby is in level I nursery. Lochia has been minimal now. She did have an episode shortly after delivery where she had a significant amount of bleeding, but this has resolved. Patient reports: Reports appetite normal, Reports voiding normally, Reports pain well controlled, Reports ambulating normally : other (In level I nursery) Objective - Vital Signs Latest vital signs: Vital Signs Temp Pulse Resp BP Pulse Ox 06/15/21 07:59 97.9 F 82 18 108/67 06/15/21 04:03 97.8 F 54 L 18 101/64 98 06/15/21 00:00 98.3 F 85 18 110/68 98 06/14/21 19:54 97.8 F 82 18 113/67 98 06/14/21 16:00 98.3 F 77 16 118/90 06/14/21 11:59 97.9 F 73 16 127/75 100 Intake and Output 06/14/21 06/15/21 06/15/21 22:59 06:59 14:59 Intake Total 300 275 Output Total 400 200 Balance -100 -200 275 Intake: IV 300 275 Output: Urine 400 200 Uretheral (Causey) 200 Other: Voiding Method Indwelling Catheter Indwelling Catheter # Voids 2 - Exam Extremities: Present: normal. Absent: tenderness, edema Abdomen: Present: normal appearance, soft. Absent: distention, tenderness Incision: Present: normal, dry, intact. Absent: erythematous Uterus: Present: normal, firm. Absent: tenderness - Labs Labs: Abnormal Lab Results - Last 24 Hours (Table) 06/15/21 Range/Units 06:48 WBC 14.2 H (3.8-10.6) k/uL RBC 2.29 L (3.80-5.40) m/uL Hgb 8.3 L D (11.4-16.0) gm/dL Hct 24.7 L (34.0-46.0) % MCV 107.7 H (80.0-100.0) fL MCH 36.4 H (25.0-35.0) pg Neutrophils # 11.2 H (1.3-7.7) k/uL Assessment and Plan Assessment: Status post repeat low transverse section postoperative day #1 Blood loss anemia Plan: Will start on oral iron today. Will repeat CBC tomorrow. Continue and postoperative care.
[2021-06-15] MEDS: HYDROcodone/APAP 5-325MG 1 EACH TAB PO PRN ×3 (11:53→20:16)
[2021-06-15] MEDS: FERROUS SULFATE 325 MG TAB PO SCH (13:04)
[2021-06-15] MEDS: SENNOSIDES-DOCUSATE SODIUM 1 EACH TAB PO SCH ×2 (19:40→20:17)
[2021-06-16] MEDS: HYDROcodone/APAP 5-325MG 1 EACH TAB PO PRN ×6 (00:08→22:50)
[2021-06-16] MEDS: ACETAMINOPHEN TAB 500 MG TAB PO SCH ×4 (00:44→20:34)
[2021-06-16] MEDS: IBUPROFEN 600 MG TAB PO SCH ×4 (02:00→20:33)
[2021-06-16 08:16] LABS: Basophils # (A) 0.1 k/uL (0-0.2); Basophils % (A) 0 %; Eosinophils # (A) 0.2 k/uL (0-0.7); Eosinophils % (A) 1 %; HCT 25.2 % (34.0-46.0); HGB 8.4 gm/dL (11.4-16.0); Lymphocytes # (A) 1.7 k/uL (1.0-4.8); Lymphocytes % (A) 14 %; MCH 36.6 pg (25.0-35.0); MCHC 33.3 g/dL (31.0-37.0); MCV 109.9 fL (80.0-100.0); Macrocytosis Marked; Mean Platelet Volume 7.1; Monocytes # (A) 0.6 k/uL (0-1.0); Monocytes % (A) 5 %; Neutrophils # (A) 9.5 k/uL (1.3-7.7); Neutrophils % (A) 77 %; Platelet Count 288 k/uL (150-450); RDW 13.3 % (11.5-15.5); WBC 12.2 k/uL (3.8-10.6)
[2021-06-16] MEDS: FERROUS SULFATE 325 MG TAB PO SCH ×2 (09:06→17:05)
[2021-06-16] MEDS: CEPHALEXIN 500 MG CAP PO SCH ×4 (09:06→20:32)
[2021-06-16] MEDS: SENNOSIDES-DOCUSATE SODIUM 1 EACH TAB PO SCH ×2 (09:06→20:32)
--- NOTE | 2021-06-16 10:29 | P.PNOBGPC ---
Subjective - Subjective Principal diagnosis: Status post repeat section postoperative day #2 Interval history: Patient is doing well. She is passing flatus but no bowel movement yet. She is ambulating and urinating without difficulty. She is bottle feeding and baby is still in the level I nursery. Patient reports: Reports appetite normal, Reports voiding normally, Reports pain well controlled, Reports ambulating normally : other (In level I nursery), bottle feeding Objective - Vital Signs Latest vital signs: Vital Signs Temp Pulse Resp BP Pulse Ox 06/16/21 08:00 76 16 06/16/21 07:00 98 F 76 16 108/64 06/15/21 23:42 98.1 F 76 18 109/62 99 06/15/21 15:31 98.1 F 72 16 104/62 06/15/21 15:29 72 18 Intake and Output 06/15/21 06/16/21 06/16/21 22:59 06:59 14:59 Other: Voiding Method Toilet # Voids 2 1 1 - Exam Extremities: Present: normal Abdomen: Present: normal appearance, soft (Positive bowel sounds 4). Absent: distention, tenderness Incision: Present: normal, dry, intact Uterus: Present: normal, firm. Absent: tenderness - Labs Labs: Abnormal Lab Results - Last 24 Hours (Table) 06/16/21 Range/Units 07:25 WBC 12.2 H (3.8-10.6) k/uL RBC 2.30 L (3.80-5.40) m/uL Hgb 8.4 L (11.4-16.0) gm/dL Hct 25.2 L (34.0-46.0) % MCV 109.9 H (80.0-100.0) fL MCH 36.6 H (25.0-35.0) pg Neutrophils # 9.5 H (1.3-7.7) k/uL Macrocytosis Marked A Assessment and Plan Assessment: Status post repeat low transverse section postoperative day #2 Blood loss anemia-stable, currently on iron Plan: Continue oral iron. Continue and postoperative care.
[2021-06-17] MEDS: ACETAMINOPHEN TAB 500 MG TAB PO SCH ×5 (01:07→22:37)
[2021-06-17] MEDS: HYDROcodone/APAP 5-325MG 1 EACH TAB PO PRN ×5 (03:52→21:07)
[2021-06-17] MEDS: IBUPROFEN 600 MG TAB PO SCH ×4 (05:40→22:38)
--- NOTE | 2021-06-17 05:46 | P.PNOBGPC ---
Subjective - Subjective Patient reports: Reports appetite normal, Reports voiding normally, Reports pain well controlled, Reports ambulating normally : doing well, in NICU (THALIA scoring protocol) Objective - Vital Signs Latest vital signs: Vital Signs Temp Pulse Resp BP Pulse Ox 06/17/21 00:00 98.0 F 81 18 107/64 96 06/16/21 16:00 67 06/16/21 15:00 16 06/16/21 08:00 76 16 06/16/21 07:00 98 F 76 16 108/64 Intake and Output 06/16/21 06/16/21 06/17/21 14:59 22:59 06:59 Other: Voiding Method Toilet Toilet # Voids 1 3 1 - Exam Lungs: bilateral: normal Chest: Normal S1, Normal S2 Extremities: Present: normal Abdomen: Present: normal appearance, soft. Absent: distention, tenderness Incision: Present: normal, dry, intact Uterus: Present: normal, firm - Labs Labs: Abnormal Lab Results - Last 24 Hours (Table) 06/16/21 Range/Units 07:25 WBC 12.2 H (3.8-10.6) k/uL RBC 2.30 L (3.80-5.40) m/uL Hgb 8.4 L (11.4-16.0) gm/dL Hct 25.2 L (34.0-46.0) % MCV 109.9 H (80.0-100.0) fL MCH 36.6 H (25.0-35.0) pg Neutrophils # 9.5 H (1.3-7.7) k/uL Macrocytosis Marked A Assessment and Plan Assessment: Postoperative day #3. Patient is resting without new complaints. Vital signs are stable and she is afebrile. Uterus is firm nontender and her incision is intact and dry. Baby needs to stay in level I nursery secondary to THALIA scoring. Patient wishes to stay and told her baby can go home later she can stay is tomorrow. Plan is to continue routine postoperative care and discharge home tomorrow. (1) Previous back surgery Current Visit: No Status: Acute Code(s): Z98.890 - OTHER SPECIFIED POSTPROCEDURAL STATES SNOMED Code(s): 874454514 (2) 39 weeks gestation of Current Visit: No Status: Acute Code(s): Z3A.39 - 39 WEEKS GESTATION OF SNOMED Code(s): 31335659 (3) Previous delivery affecting Current Visit: No Status: Acute Code(s): O34.219 - MATERNAL CARE FOR UNSP TYPE SCAR FROM PREVIOUS DEL SNOMED Code(s): 570747137 (4) Family planning Current Visit: No Status: Acute Code(s): Z30.09 - ENCOUNTER FOR OTH GENERAL CNSL AND ADVICE ON CONTRACEPTION SNOMED Code(s): 045537112
[2021-06-17] MEDS: SENNOSIDES-DOCUSATE SODIUM 1 EACH TAB PO SCH ×2 (07:54→22:37)
[2021-06-17] MEDS: CEPHALEXIN 500 MG CAP PO SCH ×4 (07:55→21:07)
[2021-06-17] MEDS: FERROUS SULFATE 325 MG TAB PO SCH ×2 (07:55→21:07)
[2021-06-17 16:15] VITALS: RESP 16
[2021-06-18] MEDS: IBUPROFEN 600 MG TAB PO SCH ×2 (00:33→10:33)
[2021-06-18] MEDS: ACETAMINOPHEN TAB 500 MG TAB PO SCH (06:10)
[2021-06-18] MEDS: HYDROcodone/APAP 5-325MG 1 EACH TAB PO PRN ×2 (06:21→10:32)
--- NOTE | 2021-06-18 06:48 | P.PNOBGPC ---
Subjective - Subjective Patient reports: Reports appetite normal, Reports voiding normally, Reports pain well controlled, Reports ambulating normally : doing well, in NICU Objective - Vital Signs Latest vital signs: Vital Signs Temp Pulse Resp BP Pulse Ox 06/18/21 00:00 98.2 F 65 16 104/50 98 06/17/21 16:00 98 F 60 16 117/52 06/17/21 08:00 97.8 F 68 18 121/58 Intake and Output 06/17/21 06/17/21 06/18/21 14:59 22:59 06:59 Other: Voiding Method Toilet # Voids 2 2 3 - Exam Lungs: bilateral: normal Chest: Normal S1, Normal S2 Extremities: Present: normal Abdomen: Present: normal appearance, soft. Absent: distention, tenderness Incision: Present: normal, dry, intact Uterus: Present: normal, firm Assessment and Plan Assessment: Postoperative day #4. Patient is resting without new complaints. Vital signs are stable she is afebrile. Uterus is firm nontender and her incision is intact and dry. My impression is a normal postoperative course. Plan is to continue routine postoperative care and discharge home later today. (1) Previous back surgery Current Visit: No Status: Acute Code(s): Z98.890 - OTHER SPECIFIED POSTPROCEDURAL STATES SNOMED Code(s): 225129895 (2) 39 weeks gestation of Current Visit: No Status: Acute Code(s): Z3A.39 - 39 WEEKS GESTATION OF SNOMED Code(s): 14141882 (3) Previous delivery affecting Current Visit: No Status: Acute Code(s): O34.219 - MATERNAL CARE FOR UNSP TYPE SCAR FROM PREVIOUS DEL SNOMED Code(s): 073543782 (4) Family planning Current Visit: No Status: Acute Code(s): Z30.09 - ENCOUNTER FOR OTH GENERAL CNSL AND ADVICE ON CONTRACEPTION SNOMED Code(s): 212283826
--- NOTE | 2021-06-18 06:50 | P.DS ---
Providers Date of admission: 06/14/21 06:03 Expected date of discharge: 06/18/21 Attending physician: Willie Adams Primary care physician: Celestino Frey - Discharge Diagnosis(es) (1) Previous back surgery Current Visit: No Status: Acute (2) 39 weeks gestation of Current Visit: No Status: Acute (3) Previous delivery affecting Current Visit: No Status: Acute (4) Family planning Current Visit: No Status: Acute Hospital Course: Please see dictated H&P for intimate details of this patient's admission. Brief summary this pleasant 35-year-old 6 para 5 female 39 weeks gestation admitted for elective repeat section and tubal ligation. Patient is admitted undergoes above-named surgery. Please see dictated operative note. Postoperative patient does well she does have some postoperative anemia which response to iron therapy. Patient's baby did have to be watched in the special care nursery due to her chronic opioid use. Patient herself did well postoperatively and on postoperative for felt be stable for discharge home follow up with me in 1 week. Procedures: Repeat low transverse section and bilateral partial salpingectomy Patient Condition at Discharge: Good Plan - Discharge Summary New Discharge Prescriptions: New Cephalexin [Keflex] 500 mg PO Q6HR 7 Days #28 cap HYDROcodone/APAP 5-325MG [Arma 5-325] 2 each PO Q4HR PRN #36 tab PRN Reason: Pain Ibuprofen [Motrin] 600 mg PO Q6H #30 tab No Action 114/Iron A-G/Folate 1 [Prenate Elite Tablet] 1 tab PO DAILY HYDROcodone/APAP 5-325MG [Arma 5-325] 1 each PO Q6HR PRN #28 tab PRN Reason: Moderate To Severe Pain Discharge Medication List 114/Iron A-G/Folate 1 [Prenate Elite Tablet] 1 tab PO DAILY 10/29/16 [History] HYDROcodone/APAP 5-325MG [Arma 5-325] 1 each PO Q6HR PRN #28 tab 11/07/18 [Rx] Cephalexin [Keflex] 500 mg PO Q6HR 7 Days #28 cap 06/14/21 [Rx] HYDROcodone/APAP 5-325MG [Arma 5-325] 2 each PO Q4HR PRN #36 tab 06/14/21 [Rx] Ibuprofen [Motrin] 600 mg PO Q6H #30 tab 06/14/21 [Rx] Follow up Appointment(s)/Referral(s): Willie Adams MD [STAFF PHYSICIAN] - 07/29/21 11:00 am (Please come to the [facility] for a incision check on 06-24-2021 @ 1:30 p.m.) Patient Instructions/Handouts: (DC) Activity/Diet/Wound Care/Special Instructions: No intercourse or anything per vagina for 6 weeks. No heavy lifting or strenuous activities. Please call if any fever, chills, excessive vaginal bleeding and/or abdominal pain. Discharge Disposition: HOME SELF-CARE
[2021-06-18] MEDS: FERROUS SULFATE 325 MG TAB PO SCH (07:24)
[2021-06-18] MEDS: CEPHALEXIN 500 MG CAP PO SCH (08:29)
[2021-06-18] MEDS: SENNOSIDES-DOCUSATE SODIUM 1 EACH TAB PO SCH (08:29)
[2021-06-18 08:56] VITALS: BP 110/60; PULSE 72; TEMP 98
== END 2021-06-18 11:00 | disposition home or self-care (01) | DRG 784 ==
LOC: 4FBP 06:03
PROVIDERS: ADMIT Obstetrics & Gynecology; ATTEND Obstetrics & Gynecology
PROC: 0UB70ZZ Excision of Bilateral Fallopian Tubes, Open Approach (ICD-10-PCS; 2021-06-14)
PROC: 10D00Z1 Extraction of Products of Conception, Low, Open Approach (ICD-10-PCS; principal; 2021-06-14 08:00)
DX: O34.211 Maternal care for low transverse scar from previous cesarean delivery (principal); D62 Acute posthemorrhagic anemia; O99.02 Anemia complicating childbirth; Z30.2 Encounter for sterilization; Z37.0 Single live birth; Z3A.39 39 weeks gestation of pregnancy; Z79.891 Long term (current) use of opiate analgesic; Z82.49 Family history of ischemic heart disease and other diseases of the circulatory system; Z82.5 Family history of asthma and other chronic lower respiratory diseases; Z87.728 Personal history of other specified (corrected) congenital malformations of nervous system and sense organs; Z98.890 Other specified postprocedural states; Z30.09 Encounter for other general counseling and advice on contraception; Z14.1 Cystic fibrosis carrier
CPT/HCPCS: 85025; 86850; 86900; 86901; 88302; 88307